=== PATIENT | male | born 1930 | race Caucasian/White ===

== ENCOUNTER 2016-04-10 16:11 | Emergency (ER) | payer MEDICARE, MEDICAID ==
[~2016-04-10] VITALS: Ht 190.5 cm; Wt 104.5 kg
[~2016-04-10 16:11] MED LIST: ASPI81TA3 PO; CALC-756 PO; CARB1TAB40 PO; CHOL200025 PO; DOCU-41 PO; FERR325T39 PO; FUR20 PO; KEP500TA PO; LAMO25TA2 PO; LISI-571 PO; LORA10CA PO; MAGN400T23 PO; METO25TA6 PO; MULT1CAP45 PO; PANT40TA2 PO; UBID100C PO; WHEA144P PO
[2016-04-10 16:19] VITALS: BP 140/55; PULSE 80; RESP 16; O2SAT 92
--- NOTE | 2016-04-10 17:09 | ED.REPORT ---
HPI-General Illness Date of Service Apr 10, 2016 ED Provider: Kvng Souza MD Pt is an 85 y/o male w/ a hx of frequent GLF's, Parkinson's disease, A-fib on ASA only, CAD, CHF, presenting to the ED via EMS due to ground level fall with minor head injury prior to arrival. He lives at a termite control service [facility] care facility and this caretakers have noticed that the pt has been mildly confused with a fever and cough and they were going to have him send urine out for analysis. He fell with a mild head injury on the way to give his urine. Caretakers wanted to help him stabilize himself on the way, but apparently he is quite stubborn and attempted to walk on his own. The head injury is a small laceration. He denies change in LOC, headache, nausea, vomiting, CP, SOB. His niece has not noticed that he has been confused. Nursing Notes Stated Complaint: GLF Chief Complaint: General Complaint Nursing Notes Reviewed: Yes Allergies: Coded Allergies: No Known Allergies (Verified Allergy, Unknown, 04/10/16) Scheduled Aspirin Chew (Aspirin Chew) 81 Mg Tab.chew 162 MG PO DAILY Calcium Carbonate/Vitamin D2 (Oyster Shell Calcium-Vit D Tab) 1 Each Tablet 1 EACH PO DAILY Carbidopa/Levodopa ODT 25-100 mg (Carbidopa/Levodopa ODT 25-100 mg) 1 Each Tab.rapdis 1 EACH PO TID Cholecalciferol (Vitamin D3) (Vitamin D3) 2,000 Unit Tablet 2,000 UNIT PO DAILY Clotrimazole 1% (Clotrimazole 1%) 30 Ml Solution 30 ML TOPICAL BID Docusate Sodium (Colace) 100 Mg Capsule 100 MG PO DAILY Ferrous Sulfate (Iron) 325 Mg Tablet 325 MG PO DAILY Furosemide (Furosemide) 20 Mg Tab 10 MG PO DAILY Lamotrigine (Lamictal) 25 Mg Tablet 25 MG PO DAILY Levetiracetam (Keppra) 500 Mg Tablet 500 MG PO BID Lisinopril (Lisinopril) 5 Mg Tablet 5 MG PO DAILY Loratadine (Claritin) 10 Mg Capsule 10 MG PO DAILY Magnesium Oxide (Mag-Oxide) 400 Mg Tablet 400 MG PO DAILY Metoprolol Tartrate (Metoprolol Tartrate) 25 Mg Tablet 12.5 MG PO BID Multivitamin with Minerals (Myvitalife) 1 Each Capsule 1 EACH PO DAILY Pantoprazole DR (Protonix) 40 Mg Tablet.dr 40 MG PO DAILY Ubidecarenone (Coenzyme Q10) 100 Mg Capsule 100 MG PO DAILY Wheat Dextrin (Benefiber) 144 Gm Powder 1 TBS PO DAILY in juice. General Time Seen by MD: 16:48 Chief Complaint Other (Minor head injury) Hx Obtained From: Patient, Other family..., EMS Arrived By: Ambulance Sudden in Onset?: Yes Onset Occurred: Just prior to arrival Symptom Duration: Since onset Caused by: Accidental, Fall on ground Severity: Current: No pain currently Severity: Maximum: No pain Past Medical History Past Medical History Notes: Neurologist Dr. ferguson ED visit 07/07/2015 for multiple ground-level falls Admit june 03 through 2015 for acute cholecystitis, new onset atrial fibrillation Has recently had Keppra DC, Vimpat increased/started for seizures Also, had amiodarone DC'd due to concern for oversedation contributing to falls in recent days Past Medical History Parkinson's disease S/P bioprosthetic AVR Atrial fibrillation (paroxysmal identified May 2015) - on ASA, not warfarin (multiple falls, high risk for warfarin) Chronic thrombocytopenia (~60-80) GERD sleep apnea BPH Coronary artery disease CHF Seizures Developmental delay Past Surgical History Aortic valve replacement: bioprosthetic cancer removal Cholecystectomy May 2015 Family History noncontributory Smoking History Current Every Day Smoker Social History Lives at [facility] Full code per [facility]ST from 07/09/15 Alcohol Use: Denies alcohol use Drug Use: Denies drug use Other Social History: Lives in correction Ambulatory Status Independent Review of Systems Full Review of Systems Constitutional: Reports: Fever, Weakness - generalized Respiratory: Reports: Non-productive cough, Denies: Shortness of breath Cardiovascular: Denies: Chest pain Neurologic: Reports: Confusion, Denies: Bladder dysfunction, Bowel dysfunction, Focal weakness, Headache, Numbness, Problem walking, Slurred speech, Spinning sensation, Syncope, Unable to speak, Vision change Complete sys rev & neg: except as marked. Physical Exam Vital Signs Vital Signs Date Time Temp Pulse Resp B/P Pulse Ox O2 Delivery O2 Flow Rate FiO2 04/10/16 19:12 80 20 157/68 95 Room Air 04/10/16 16:19 37.1 80 16 140/55 92 Room Air Initial VS: Reviewed, Vital signs abnormal ENT: Mucous membranes moist, Conjunctiva normal, No scleral icterus Neck: Supple, Non-tender, Full range of motion Abdomen / GI: Soft, Non-tender, No guarding, No rebound, No distention Psychiatric: Mood/affect normal, Behavior normal, Normal thought content General/Constitutional: Awake, Alert, No acute distress, Cooperative, Not toxic appearing Head / Eyes: Normocephalic, PERRL, No periorbital redness, No periorbital swelling 3 cm oblique laceration above the right eyelid Respiratory / Chest: Atraumatic, No respiratory distress, No retractions, No chest tenderness, No chest wall deformity Bibasilar crackles Cardiovascular: Heart rate NL, Regular rhythm, No gallop, No rubs, Cap refill not delayed, Peripheral circulation NL Heart Sounds / Murmur: Positive: Systolic murmur present.. (IV/, best heard right upper sternal border) Lower Extremity / Pelvis / MS: Full range of motion, No deformity, Neurologic intact, Vascular intact, Pelvis stable, Pelvis non-tender Minor abrasion over right patella Skin: Warm, Dry, Intact Color / Condition: Positive: Rash present Rash / Lesion Notes: Beefy erythematous fungal appearing rash about his right groin fold Neurologic: Oriented X3, Speech NL, No motor deficits, No sensory deficits, CN II - XII intact, Cerebellar NL, Memory NL Interpretation & Diagnostics Lab Results Interpretation Result Diagram: 04/10/16 1636 04/10/16 1636 Test 04/10/16 16:36 04/10/16 17:37 04/10/16 18:40 White Blood Count 5.0th/mm3 (3.8-10.1) Red Blood Count 4.36mil/mm3 (4.40-5.80) Hemoglobin 13.5g/dL (13.8-17.2) Hematocrit 39.5% (41.0-50.0) Mean Corpuscular Volume 90.6fL (81-100) Mean Corpuscular Hemoglobin 31.0pg (27.0-35.0) Mean Corpuscular Hemoglobin Concent 34.2% (32.0-37.0) Red Cell Distribution Width 12.8% (12.3-15.4) Platelet Count 69bil/L (150-400) Neutrophils (%) (Auto) 81.2% (40-74) Lymphocytes (%) (Auto) 9.8% (14-46) Monocytes (%) (Auto) 8.2% (4-12) Eosinophils (%) (Auto) 0.4% (0-5) Basophils (%) (Auto) 0.2% (0-3) Hold Purple Top Tube Received (Received) Hold Blue Top Tube Received (Received) Sodium Level 139mEq/L (134-144) Potassium Level 4.1mEq/L (3.5-5.2) Chloride Level 100mEq/L (97-108) Carbon Dioxide Level 26mmol/L (18-29) Blood Urea Nitrogen 26mg/dL (8-27) Creatinine 1.16mg/dL (0.76-1.27) Estimat Glomerular Filtration Rate 64mL/min (>59) Glucose Level 136mg/dL (60-99) Calcium Level 9.6mg/dL (8.5-10.1) Total Bilirubin 0.6mg/dL (0.0-1.2) Aspartate Amino Transf (AST/SGOT) 30U/L (0-50) Alanine Aminotransferase (ALT/SGPT) 5U/L (0-44) Alkaline Phosphatase 109U/L (25-160) Total Protein 7.7g/dL (6.4-8.4) Albumin 4.3g/dL (3.4-5.0) Hold Red Top Tube Received (Received) Hold [place] Top Tube Received (Received) Hold [place] Top Tube Received (Received) Urine Color Yellow (YELLOW) Urine Appearance Hazy (CLEAR,HAZY) Urine pH 6.0 (5.0-8.0) Urine Specific [place] 1.025 (1.003-1.035) Urine Protein Negativemg/dL (NEG,TRACE) Urine Glucose (UA) Negativemg/dL (NEGATIVE) Urine Ketones Negativemg/dL (NEGATIVE) Urine Occult Blood Large (NEGATIVE) Urine Nitrite Negative (NEGATIVE) Urine Bilirubin Negative (NEGATIVE) Urine Urobilinogen Normalmg/dL (NORMAL) Urine Leukocyte Esterase Negative (NEGATIVE) Urine RBC >50/hpf (0-2) Urine WBC 0-5/hpf (0-5) Urine Epithelial Cells Moderate/hpf (NONE-MOD) Urine Crystals None seen (NONE SEEN) Urine Bacteria None/hpf (NONE-FEW) Urine Hyaline Casts None/lpf (NONE) Urine Granular Casts None seen (NONE SEEN) Urine Waxy Casts None seen (NONE SEEN) Urine Red Blood Cell Casts None seen (NONE SEEN) Urine White Blood Cell Casts None seen (NONE SEEN) Urine Mucus Present (None Seen) Urine Trichomonas None seen (NONE SEEN) Urine Yeast None (NONE SEEN) Urinalysis Comment None Urine Culture Reflexed Not indicated Hold Urine Received (Received) ECG Interpretation ECG Interpretation: Sinus rhythm rate [address] depression leads V4, V5 Compared to prior date 07/09/15 the patient is no longer bradycardic Time: 17:45 Interpreted by: ED physician Normal ECG Interpretation: No acute ischemic changes X-Ray Chest Interpretation Chest Xray Interpretation: IMPRESSION: No acute process. Hiatal hernia. Dictated by: Nguyen Esteban M.D. on 04/10/2016 at 18:11 Approved by: Nguyen Esteban M.D. on 04/10/2016 at 18:12 View: Portable, 1 view Interpretation / Wet Read by: Interpret - Radiologist CT Head Interpretation IMPRESSION: No acute intracranial abnormality. Dictated by: Nguyen Esteban M.D. on 04/10/2016 at 17:35 Approved by: Nguyen Esteban M.D. on 04/10/2016 at 17:36 Study: Head CT no contrast Interpretation / Wet Read by: Interpret - Radiologist Procedures Laceration Management Time: 17:50 Procedure Performed by: ED physician Consent / Setup / Site Prep: Consent from patient, Time-out performed, Hand hygiene observed, Stand sterile technique Location of Wound: See physical exam Wound Length: 4 cm Local Anesthesia: Lidocaine w epi 1% Wound Preparation: Betadine Debridement: None Irrigation: Copious Undermining / Margins: Flaps aligned Repair Skin: ___ O (4), Nylon # Sutures - Skin: 5 Suture Technique: Simple Post-Procedure / Complications: Antibiotic oint applied, Dressing applied, No complications, Condition improved, Tolerated procedure well, Patient stable Re-Eval/Medical Decision Med Decision/Clinical Course Pt is an 85 y/o male w/ a hx of frequent GLF's, Parkinson's disease, A-fib on ASA only, CAD, CHF, presenting to the ED via EMS due to ground level fall with minor head injury prior to arrival. Per report the patient had been behaving somewhat abnormally at his care facility and was being taken to give a urine sample when he fell. Of note, however, he is accompanied by his daughter who states that he is at his normal cognitive baseline and is behaving completely normally. Labs notable as below: CBC: no leukocytosis, HCT of 39.5, Thrombocytopenia of 69 which is baseline for him CMP: Unremarkable UA: Unremarkable CT scan of the patient's head demonstrated no acute intracranial process. Chest x-ray and was treated no acute focal consolidation. The patient's tetanus status was updated and his laceration was repaired as above. The patient remained at his cognitive baseline without any fevers, leukocytosis or evidence of an acute infectious process. I considered multiple causes of the patient's possible altered mental status however this time there are no findings of electrolyte abnormality, intracranial hemorrhage or acute infectious process and her family he is at his cognitive baseline. At this time we feel that he is appropriate for discharge home. Follow-up and return precautions were reviewed in detail and he was discharged in stable condition. Sutures will be removed in 7 days. Incidentally the patient was found to have significant tinea cruris and we applied clotrimazole cream here in the emergency department and he is prescribed a course of clotrimazole cream to apply twice daily until his rash resolves. Time of Eval: 18:17 Re-Evaluation/Progress Note: Pt rechecked. Informed pt of plan for treatment. Pt understands and agrees with plan for treatment. F/U instructions and RTER warnings given. All questions addressed. Counseled Regarding: Diagnosis, Lab results, Need for follow-up, When/why to return to ED Discharge & Departure Primary Impression: Fall from ground level Additional Impressions: Scalp laceration Encounter type: initial encounter Qualified Code: S01.01XA - Laceration without foreign body of scalp, initial encounter Tinea cruris Altered mental status Altered mental status type: unspecified Qualified Code: R41.82 - Altered mental status, unspecified Disposition: Home Discharge Condition All VS Reviewed: Yes Condition: Stable Patient Instructions: Laceration (ED), Minor Head Injury (ED) Additional Instructions: Thank you for seeking care at emergency room. There was no sign of pneumonia on the chest x-ray. Your labs were normal. I believe that you are appropriate for discharge at this time. Our primary goal today in the ED was to evaluate you for any life-threatening conditions. Your evaluation was reassuring. You will be discharged with a prescription for Clotrimazole cream. Apply this generously over the fungal rash. You should follow-up with your primary doctor in the next week. You should return to the ED immediately if you develop fevers, vomiting, productive cough, shortness of breath, chest pain, lightheadedness, weakness or any other concerning signs or symptoms. Thank you for letting us partake in your care today. Referrals: Chaz Rice MD (PCP) [place] Attestation Portions of this note were transcribed by Tony Uribe. I, Dr. Souza personally performed the history, physical exam and medical decision-making; I reviewed and confirmed the accuracy of the information in the transcribed note. Signed by Eliana Russ, 04/10/16 - [id number] copies to: Chaz Rice MD, Beck O MD Apr 10, 2016 17:09 TONY URIBE Apr 10, 2016 17:17
[2016-04-10] MEDS ORDERED: Lidocaine 1% 50 mL Inj NERVEBLOCK ONE (17:15)
[2016-04-10] MEDS ORDERED: TdaP Vaccine 0.5 mL Inj IM ONE (17:15)
[2016-04-10 17:24] LABS: BASOPHILS % (AUTO) 0.2 % (0-3); EOSINOPHILS % (AUTO) 0.4 % (0-5)
[2016-04-10 17:26] LABS: MONOCYTES % (AUTO) 8.2 % (4-12); Mean Corpuscular Volume 90.6 fL (81-100); NEUTROPHILS % (AUTO) 81.2 % (40-74); Platelet Count 69 bil/L (150-400)
--- NOTE | 2016-04-10 17:37 | DRSVH ---
PROCEDURE: CT BRAIN WITHOUT CONTRAST ([id number]) INDICATIONS: trauma TECHNIQUE: Noncontrast 4.5 mm thick angled axial sections acquired from the foramen magnum to the vertex, with c oronal reformats. COMPARISON: [facility], CT, BRAIN (TPA), 07/09/2015, 11:52. [facility], CT, CT BRAIN WO CON, 07/07/2015, 10:16. [facility], CT, CT BRAIN WO CON, 06/04/2015, 17:03. [facility], CT, CT BRAIN WO CON, 03/14/2015, 10:07. FINDINGS: Image quality: Excellent. CSF spaces: Basal cisterns are patent. No extra-axial fluid collections. The ventricles are symmet gertrude in size and shape. Brain: No intracranial bleeds or masses. There is cerebral volume loss for age, with resultant vent ricular and sulcal prominence. There are periventricular and deep white matter chronic small vessel ischemic changes. There is intracranial internal carotid artery atherosclerosis. Skull and face: Calvarium and visualized facial bones appear intact, without suspicious lesions. Ri ght frontal scalp hematoma is present. No evidence of underlying calvarial nor intracranial pathology . Sinuses: Left maxillary sinus retention cysts are present. Visualized sinuses and mastoids are otherw ise clear. IMPRESSION: No acute intracranial abnormality. Dictated by: Nguyen Esteban M.D. on 04/10/2016 at 17:35 Approved by: Nguyen Esteban M.D. on 04/10/2016 at 17:36
[2016-04-10 18:08] LABS: APPEARANCE,URINE HAZY (CLEAR,HAZY); COLOR,URINE YELLOW (YELLOW); OCCULT BLOOD,URINE LARGE (NEGATIVE); UROBILINOGEN,URINE NORMAL (NORMAL)
--- NOTE | 2016-04-10 18:14 | DRSVH ---
PROCEDURE: X-RAY CHEST ONE VIEW, PORTABLE ([id number]) INDICATIONS: cough TECHNIQUE: One view of the chest was acquired. COMPARISON: [facility], CR, XR CHEST 1VW (PORTABLE), 07/07/2015, 8:46. FINDINGS: Surgical changes and devices: Median sternotomy. Lungs and pleura: No pleural effusions or pneumothorax. Lungs are clear. Mediastinum: Large hiatal hernia. Mediastinal contours otherwise appear normal. Heart size is enlar ged. Bones and chest wall: No suspicious bony lesions. Overlying soft tissues appear unremarkable. IMPRESSION: No acute process. Hiatal hernia. Dictated by: Nguyen Esteban M.D. on 04/10/2016 at 18:11 Approved by: Nguyen Esteban M.D. on 04/10/2016 at 18:12
[2016-04-10] MEDS ORDERED: CLOT30SO TOPICAL (18:16)
[2016-04-10 19:12] VITALS: BP 157/68; PULSE 80; RESP 20; O2SAT 95
[2016-04-10 19:15] VITALS: BP 157/68; PULSE 80; RESP 20; O2SAT 95
== END 2016-04-10 19:08 ==
LOC: EDBD 16:11 → SED 16:11 → EDUNIT# 16:11 → SED 19:08
DX: S01.01XA Laceration without foreign body of scalp, initial encounter (principal); R41.82 Altered mental status, unspecified; B35.6 Tinea cruris; W19.XXXA Unspecified fall, initial encounter; Y93.89 Activity, other specified; Y92.129 Unspecified place in nursing home as the place of occurrence of the external cause; Y99.8 Other external cause status; F17.200 Nicotine dependence, unspecified, uncomplicated; K21.9 Gastro-esophageal reflux disease without esophagitis; I50.9 Heart failure, unspecified; I25.10 Atherosclerotic heart disease of native coronary artery without angina pectoris; Z90.49 Acquired absence of other specified parts of digestive tract; Z79.82 Long term (current) use of aspirin; Z23 Encounter for immunization

== ENCOUNTER 2016-04-12 11:47 | Inpatient (IN) | payer MEDICARE, MEDICAID ==
[~2016-04-12] VITALS: Ht 190.5 cm; Wt 94.5 kg
[~2016-04-12 11:47] MED LIST changes: +CLOT30SO TOPICAL
--- NOTE | 2016-04-12 12:07 | ED.REPORT ---
HPI-General Illness Date of Service Apr 12, 2016 ED Provider: Kvng Souza MD Pt is an 85 y/o male w/ a hx of frequent GLF's, Parkinson's disease, A-fib on ASA only, CAD, CHF, presenting to the ED via EMS after he had a ground level fall prior to arrival. His niece states he is much worse today. His shaking is worse and he is not recognizing his family members. The patient was seen in the emergency department 2 days ago after he had a ground level fall. He had a normal head CT and chest x-ray. He was discharged home after the workup. Nursing Notes Stated Complaint: GROUND LEVEL FALL Chief Complaint: General Complaint Nursing Notes Reviewed: Yes Allergies: Coded Allergies: No Known Allergies (Verified Allergy, Unknown, 04/10/16) Scheduled Aspirin Chew (Aspirin Chew) 81 Mg Tab.chew 162 MG PO DAILY Calcium Carbonate/Vitamin D2 (Oyster Shell Calcium-Vit D Tab) 1 Each Tablet 1 EACH PO DAILY Carbidopa/Levodopa ODT 25-100 mg (Carbidopa/Levodopa ODT 25-100 mg) 1 Each Tab.rapdis 1 EACH PO TID Cholecalciferol (Vitamin D3) (Vitamin D3) 2,000 Unit Tablet 2,000 UNIT PO DAILY Clotrimazole 1% (Clotrimazole 1%) 30 Ml Solution 30 ML TOPICAL BID Docusate Sodium (Colace) 100 Mg Capsule 100 MG PO DAILY Ferrous Sulfate (Iron) 325 Mg Tablet 325 MG PO DAILY Furosemide (Furosemide) 20 Mg Tab 10 MG PO DAILY Lamotrigine (Lamictal) 25 Mg Tablet 25 MG PO DAILY Levetiracetam (Keppra) 500 Mg Tablet 500 MG PO BID Lisinopril (Lisinopril) 5 Mg Tablet 5 MG PO DAILY Loratadine (Claritin) 10 Mg Capsule 10 MG PO DAILY Magnesium Oxide (Mag-Oxide) 400 Mg Tablet 400 MG PO DAILY Metoprolol Tartrate (Metoprolol Tartrate) 25 Mg Tablet 12.5 MG PO BID Multivitamin with Minerals (Myvitalife) 1 Each Capsule 1 EACH PO DAILY Pantoprazole DR (Protonix) 40 Mg Tablet.dr 40 MG PO DAILY Ubidecarenone (Coenzyme Q10) 100 Mg Capsule 100 MG PO DAILY Wheat Dextrin (Benefiber) 144 Gm Powder 1 TBS PO DAILY in juice. General Time Seen by MD: 11:48 Chief Complaint Altered mental status, Other (fall) Hx Obtained From: Patient, Other family..., EMS Arrived By: Ambulance Sudden in Onset?: No Onset Occurred: 5 - 8 hours ago Symptom Duration: Since onset Caused by: Fall on ground Recent Healthcare: Recent doctor visit Similar Sx Previous: Yes Past Medical History Past Medical History Parkinson's disease S/P bioprosthetic AVR Atrial fibrillation (paroxysmal identified May 2015) - on ASA, not warfarin (multiple falls, high risk for warfarin) Chronic thrombocytopenia (~60-80) GERD sleep apnea BPH Coronary artery disease CHF Seizures Developmental delay Past Surgical History Aortic valve replacement: bioprosthetic cancer removal Cholecystectomy May 2015 Family History noncontributory Smoking History Current Every Day Smoker Social History Lives at [facility] Full code per [facility] from 07/09/15 Alcohol Use: Denies alcohol use Drug Use: Denies drug use Other Social History: Good social support, Lives in halfway, Local resident Ambulatory Status Independent Review of Systems Unable to Obtain ROS Patient condition, Mental status Full Review of Systems Neurologic: Reports: Confusion, Shaking Physical Exam Vital Signs Vital Signs Date Time Temp Pulse Resp B/P Pulse Ox O2 Delivery O2 Flow Rate FiO2 04/12/16 13:56 37.3 72 19 114/65 94 Nasal Cannula 2 04/12/16 12:12 37.9 76 23 124/79 92 Nasal Cannula 2 Initial VS: Reviewed, Vital signs abnormal Neck: Supple, Non-tender, Full range of motion Skin: Warm, Dry, No cyanosis General/Constitutional: Awake Head / Eyes: Normocephalic, PERRL, EOMI Well healing laceration with sutures present about the right brow. No acute trauma to scalp or face. ENT: Airway patent Mouth: Positive: Mucous membranes dry Respiratory / Chest: Breath sounds = bilat, No respiratory distress, No rales, No rhonchi, No wheezing Diminished Breath Sounds: Positive: Decreased bilateral Cardiovascular: Heart rate NL, Regular rhythm, No rubs, Cap refill not delayed , Peripheral circulation NL Heart Sounds / Murmur: Positive: Systolic murmur present.. (grade II, heard best at the left sternal border) Abdomen: Soft, Non-tender, No guarding, No rebound, BS normoactive, No distention Soft and nontender in all 4 quadrants Male Genitourinary: Atraumatic Improving fungal infection about groin folds. NEURO: Intermittently opens eyes to verbal commands but not consistently. Speech is not fluent. Ground Water [employer]ician strength 5/5 bilaterally. Sensation intact to bilateral upper extremities. Exam is limited to lower extremities but he appears to have equal strength. No facial droop. Nonfocal neurologic exam. Interpretation & Diagnostics Lab Results Interpretation Result Diagram: 04/12/16 1245 04/12/16 1245 Test 04/12/16 12:00 04/12/16 12:45 Urine Color Yellow (YELLOW) Urine Appearance Clear (CLEAR,HAZY) Urine pH 5.0 (5.0-8.0) Urine Specific [place] 1.025 (1.003-1.035) Urine Protein Tracemg/dL (NEG,TRACE) Urine Glucose (UA) Negativemg/dL (NEGATIVE) Urine Ketones Negativemg/dL (NEGATIVE) Urine Occult Blood Negative (NEGATIVE) Urine Nitrite Negative (NEGATIVE) Urine Bilirubin Negative (NEGATIVE) Urine Urobilinogen Normalmg/dL (NORMAL) Urine Leukocyte Esterase Negative (NEGATIVE) Urine RBC 0-2/hpf (0-2) Urine WBC 0-5/hpf (0-5) Urine Epithelial Cells Few/hpf (NONE-MOD) Urine Crystals None seen (NONE SEEN) Urine Bacteria Few/hpf (NONE-FEW) Urine Hyaline Casts None/lpf (NONE) Urine Granular Casts Occasional (NONE SEEN) Urine Waxy Casts None seen (NONE SEEN) Urine Red Blood Cell Casts None seen (NONE SEEN) Urine White Blood Cell Casts None seen (NONE SEEN) Urine Mucus None seen (None Seen) Urine Trichomonas None seen (NONE SEEN) Urine Yeast None (NONE SEEN) Urinalysis Comment None Urine Culture Reflexed Not indicated Hold Urine Received (Received) White Blood Count 5.6th/mm3 (3.8-10.1) Red Blood Count 4.54mil/mm3 (4.40-5.80) Hemoglobin 14.0g/dL (13.8-17.2) Hematocrit 42.0% (41.0-50.0) Mean Corpuscular Volume 92.5fL (81-100) Mean Corpuscular Hemoglobin 30.8pg (27.0-35.0) Mean Corpuscular Hemoglobin Concent 33.3% (32.0-37.0) Red Cell Distribution Width 13.0% (12.3-15.4) Platelet Count 69bil/L (150-400) Neutrophils (%) (Auto) 76.9% (40-74) Lymphocytes (%) (Auto) 10.3% (14-46) Monocytes (%) (Auto) 12.8% (4-12) Eosinophils (%) (Auto) 0% (0-5) Basophils (%) (Auto) 0% (0-3) Sodium Level 140mEq/L (134-144) Potassium Level 4.4mEq/L (3.5-5.2) Chloride Level 99mEq/L (97-108) Carbon Dioxide Level 27mmol/L (18-29) Blood Urea Nitrogen 31mg/dL (8-27) Creatinine 1.57mg/dL (0.76-1.27) Estimat Glomerular Filtration Rate 45mL/min (>59) Glucose Level 149mg/dL (60-99) Lactic Acid Level 1.6mmol/L (0.4-2.0) Calcium Level 9.0mg/dL (8.5-10.1) Magnesium Level 2.1mg/dL (1.6-2.6) Total Bilirubin 0.6mg/dL (0.0-1.2) Aspartate Amino Transf (AST/SGOT) 77U/L (0-50) Alanine Aminotransferase (ALT/SGPT) 30U/L (0-44) Alkaline Phosphatase 102U/L (25-160) Ammonia 38ug/dL (18-53) Troponin T < 0.010ug/L (0.0-0.011) Pro-B-Type Natriuretic Peptide 695.8pg/mL (0-486) Total Protein 7.5g/dL (6.4-8.4) Albumin 4.0g/dL (3.4-5.0) Salicylates Level < 3.0ug/mL (30-250) Alcohol, Quantitative < 10mg/dL (0-10) ECG Interpretation ECG Interpretation: Sinus rhythm with a rate of [address] segment elevation No T wave abnormalities No prior available for comparison at this time. Time: 12:45 Interpreted by: ED physician X-Ray Chest Interpretation Chest Xray Interpretation: IMPRESSION: 1. No acute process. 2. Hiatal hernia. Dictated by: Nguyen Esteban M.D. on 04/12/2016 at 13:28 Interpretation / Wet Read by: Interpret - Radiologist CT Head Interpretation IMPRESSION: 1. No acute process. 2. Volume loss and small vessel ischemic disease. 3. No change in hypodensity within the left marii, consistent with chronic infarct. Dictated by: Nguyen Esteban M.D. on 04/12/2016 at 13:14 Study: Head CT no contrast Interpretation / Wet Read by: Interpret - Radiologist Re-Eval/Medical Decision Med Decision/Clinical Course Pt is an 85 y/o male w/ a hx of frequent GLF's, Parkinson's disease, A-fib on ASA only, CAD, CHF, presenting to the ED via EMS after he had a ground level fall prior to arrival. He was seen and evaluated this emergency department 2 days ago after a ground-level fall and had extensive workup at that time including head CT, urinalysis, chest x-ray and laboratory studies which were reassuring. He is not to be at his regular baseline per family member and was speaking normally and making jokes at time of discharge. Upon arrival in the emergency room today the patient is hypoxic in the high 80s on room air, improving to the 90s on 2 L by nasal canula. He is confused, unable to provide any history and significantly altered from his previous baseline. He appeared significantly dehydrated. IV access was obtained and I administered IV fluids. Workup was obtained as below: CBC unremarkable except for thrombocytopenia with a platelet count of 69 which is his baseline. BUN 31 and creatinine 1.57 which is elevated from baseline, otherwise the CMP is unremarkable. Troponin is negative. BNP is mildly elevated at 695. Aspirin and salicylates are negative. UA unconvincing of UTI. CT head negative Chest x-ray negative for acute infiltrate Because of the patient's profound alteration of mental status remains unclear. At this time there is no lateralizing neurologic deficit suggestive of acute ischemic stroke and head CT is negative for intracranial hemorrhage or mass lesion. Again, there is no evidence of acute infectious process such as pneumonia or UTI. The patient has no meningismus, no fever and no leukocytosis and at this time my suspicion for meningitis is relatively low. We have opted to defer LP for the moment. The patient is on multiple medications including multiple antiepileptic drugs and I wonder if polypharmacy may be a contributing factor in his presentation today. In addition, his underlying neurologic disease may be contributing to his presentation as well. Regardless, the patient has significantly deteriorating mental status and requires admission for further workup and monitoring. The patient was discussed with the admitting hospitalist accepted for further management. Source of Hx: Old records, EMS, Family Time of Eval: 13:00 Re-Evaluation/Progress Note: Discussed plan for admission with the patient and family. All questions were addressed. Consultation : Referral / Consult Name: Adryan Mckenna MD Consulted With: Hospitalist Requested Call at: 13:35 Call Returned at: 14:35 Ship'S Captain: Will see patient, Agrees with eval, Agrees with plan, Accepts admit Counseled Regarding: Diagnosis, Lab results, Need for admission Discharge & Departure Primary Impression: Altered mental status Altered mental status type: unspecified Qualified Code: R41.82 - Altered mental status, unspecified Additional Impressions: Hypoxia Fall from ground level Parkinsons disease Generalized weakness Polypharmacy History of seizure disorder Disposition: ADMITTED TO HOSPITAL Discharge Condition All VS Reviewed: Yes Condition: Stable Referrals: Alexandre Lees DO (PCP) Crit Care Except Billable Proc Time Spent: 75-104 minutes Services Performed: Patient management by me, Time spent at bedside, Reviewing test results, Reviewing imaging, Discussing patient care, Documentation in record, Time with fam/surrogate Scribe Attestation Portions of this note were transcribed by Neeru Taveras. I, Dr. Souza personally performed the history, physical exam and medical decision-making; I reviewed and confirmed the accuracy of the information in the transcribed note. Signed by: Eliana Nielsen, 04/12/2016 and 1440. copies to: Alexandre Lees Beck O MD Apr 12, 2016 12:07 Neeru Taveras Apr 12, 2016 12:19
[2016-04-12 12:12] VITALS: BP 124/79; PULSE 76; RESP 23; O2SAT 92
[2016-04-12] MEDS ORDERED: 0.9% Sodium Chloride 1,000 ML IV ONE (12:20)
[2016-04-12] MEDS ORDERED: Alum-Mag Hydrox-Simeth 30 mL Suspension PO PRN ×2 (12:30→15:45)
[2016-04-12] MEDS ORDERED: Ondansetron 2 mg/mL 2 mL Inj IVPUSH PRN ×2 (12:30→15:45)
[2016-04-12 12:37] LABS: APPEARANCE,URINE CLEAR (CLEAR,HAZY); COLOR,URINE YELLOW (YELLOW); OCCULT BLOOD,URINE NEGATIVE (NEGATIVE); UROBILINOGEN,URINE NORMAL (NORMAL)
[2016-04-12 12:55] LABS: BASOPHILS % (AUTO) 0 % (0-3); EOSINOPHILS % (AUTO) 0 % (0-5); MONOCYTES % (AUTO) 12.8 % (4-12); Mean Corpuscular Hemoglobin 30.8 pg (27.0-35.0); Mean Corpuscular Volume 92.5 fL (81-100); NEUTROPHILS % (AUTO) 76.9 % (40-74); Platelet Count 69 bil/L (150-400)
--- NOTE | 2016-04-12 13:18 | DRSVH ---
PROCEDURE: CT BRAIN WITHOUT CONTRAST ([id number]) INDICATIONS: ams TECHNIQUE: Noncontrast 4.5 mm thick angled axial sections acquired from the foramen magnum to the vertex, with c oronal reformats. COMPARISON: [facility], CT, CT BRAIN WO CON, 04/10/2016, 17:28. FINDINGS: Image quality: Excellent. CSF spaces: Basal cisterns are patent. No extra-axial fluid collections. The ventricles are symmet gertrude in size and shape. Brain: No intracranial bleeds or masses. No change in low-density within the left marii, consistent with chronic infarction. There is cerebral volume loss for age, with resultant ventricular and sulcal prominence. There are periventricular and deep white matter chronic small vessel ischemic changes. There is intracranial internal carotid artery atherosclerosis. Skull and face: Calvarium and visualized facial bones appear intact, without suspicious lesions. Sinuses: Mild left maxillary sinus mucosal thickening. Left maxillary sinus retention cyst. Mild bila teral ethmoid air cell mucosal thickening. Visualized sinuses and mastoids are otherwise clear. IMPRESSION: 1. No acute process. 2. Volume loss and small vessel ischemic disease. 3. No change in hypodensity within the left marii, consistent with chronic infarct. Dictated by: Nguyen Esteban M.D. on 04/12/2016 at 13:14 Approved by: Nguyen Esteban M.D. on 04/12/2016 at 13:16
[2016-04-12 13:29] LABS: TROPONIN T < 0.010 ug/L (0.0-0.011)
--- NOTE | 2016-04-12 13:30 | DRSVH ---
PROCEDURE: X-RAY CHEST ONE VIEW, PORTABLE ([id number]) INDICATIONS: ams, hypoxia TECHNIQUE: One view of the chest was acquired. COMPARISON: [facility], CR, XR CHEST 1VW (PORTABLE), 04/10/2016, 17:27. FINDINGS: Surgical changes and devices: Median sternotomy. Lungs and pleura: No pleural effusions or pneumothorax. Lungs are clear. Mediastinum: Moderate hiatal hernia. Mediastinal contours otherwise appear normal. Heart size is nor mal. Bones and chest wall: No suspicious bony lesions. Overlying soft tissues appear unremarkable. IMPRESSION: 1. No acute process. 2. Hiatal hernia. Dictated by: Nguyen Esteban M.D. on 04/12/2016 at 13:28 Approved by: Nguyen Esteban M.D. on 04/12/2016 at 13:28
[2016-04-12 13:37] LABS: Magnesium 2.1 mg/dL (1.6-2.6)
[2016-04-12 13:39] LABS: Ammonia 38 ug/dL (18-53)
[2016-04-12 13:56] VITALS: BP 114/65; PULSE 72; RESP 19; O2SAT 94
[2016-04-12] MEDS ORDERED: Polyethylene Glycol (PEG) 17 Gm Powder PO PRN (15:45)
[2016-04-12 16:16] VITALS: BP 107/50; PULSE 73; RESP 18; O2SAT 95
[2016-04-12] MEDS ORDERED: CA C1TAB92 PO (16:38)
[2016-04-12] MEDS ORDERED: UBID30CA8 PO (16:38)
[2016-04-12] MEDS ORDERED: LORA5SOL82 PO (16:38)
[2016-04-12] MEDS ORDERED: ACET325T51 PO (16:38)
[2016-04-12] MEDS ORDERED: PSYL660P17 PO (16:38)
[2016-04-12] MEDS: 0.9% Sodium Chloride 1,000 ML IV SCH (16:40)
[2016-04-12 16:46] VITALS: BP 132/74; PULSE 74; RESP 18; O2SAT 92
[2016-04-12] MEDS ORDERED: cefTRIAXone Inj 2,000 MG, Lidocaine PF 1% Inj 2.1 ML in Syringe 0 EACH IM ONE (17:50)
--- NOTE | 2016-04-12 19:10 | PCM.HPMED ---
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 This resulted in him having an aortic valve replacement 3 years ago. Patient did well after the surgery and returned to the [facility]. The patient did well at the [facility] until June 2015 when he developed TIA-like symptoms. Patient was found to have cholecystitis and had a cholecystectomy and when ready to be discharged the [facility] refused to take him back to [facility] medical problems. Patient was then discharged to the [facility] [place]. Patient did well at [facility] until he fell and hit his head on 04/10/2015. Patient reportedly had a fever of 101. Patient was evaluated in the emergency room at [facility] and the had no significant findings on CAT scan and had no significant findings on chest x-ray and was discharged home. The patient did well for a little while since Wednesday and then started developing features of disorientation again. This morning he was found slumped over in his wheelchair and had altered mental status he did not recognize people he that he normally recognizes and was not his normal mental self. Therefore patient was brought to [facility] emergency room for further evaluation and treatment. Patient was evaluated in the emergency room Kvng Aguero M.D. who felt the patient needed admission. Patient was admitted to the hospital service for further evaluation and treatment. Review of Systems: Patient is unable to give a review of systems due to altered mental status. Allergies Coded Allergies: No Known Allergies (Verified Allergy, Unknown, 04/10/16) Home Medications Scheduled Aspirin Chew (Aspirin Chew) 81 Mg Tab.chew 162 MG PO DAILY Calcium Carbonate/Vitamin D2 (Oyster Shell Calcium-Vit D Tab) 1 Each Tablet 1 EACH PO DAILY Carbidopa/Levodopa ODT 25-100 mg (Carbidopa/Levodopa ODT 25-100 mg) 1 Each Tab.rapdis 1 EACH PO TID Cholecalciferol (Vitamin D3) (Vitamin D3) 2,000 Unit Tablet 2,000 UNIT PO DAILY Clotrimazole 1% (Clotrimazole 1%) 30 Ml Solution 30 ML TOPICAL BID Docusate Sodium (Colace) 100 Mg Capsule 100 MG PO DAILY Ferrous Sulfate (Iron) 325 Mg Tablet 325 MG PO DAILY Furosemide (Furosemide) 20 Mg Tab 10 MG PO DAILY Lamotrigine (Lamictal) 25 Mg Tablet 25 MG PO DAILY Levetiracetam (Keppra) 500 Mg Tablet 500 MG PO BID Lisinopril (Lisinopril) 5 Mg Tablet 5 MG PO DAILY Loratadine (Claritin) 10 Mg Capsule 10 MG PO DAILY Magnesium Oxide (Mag-Oxide) 400 Mg Tablet 400 MG PO DAILY Metoprolol Tartrate (Metoprolol Tartrate) 25 Mg Tablet 12.5 MG PO BID Multivitamin with Minerals (Myvitalife) 1 Each Capsule 1 EACH PO DAILY Pantoprazole DR (Protonix) 40 Mg Tablet.dr 40 MG PO DAILY Ubidecarenone (Coenzyme Q10) 100 Mg Capsule 100 MG PO DAILY Wheat Dextrin (Benefiber) 144 Gm Powder 1 TBS PO DAILY in juice. PMH Parkinson's disease History of Rheumatic fever with Rheumatic heart disease S/P bioprosthetic AVR [address] 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 for rheumatic heart disease Cholecystectomy in June 2015 Colonoscopy in the recent past with one polyp removed Family History His father of a cerebrovascular accident Patient mother of congestive heart flair Patient's brother had aortic valve replacement and then of an aortic aneurysm Patient is a sister who is 87 years old and lives independently Social History Occupation: retired [employer] Hx Alcohol Use: Yes ("occasional" patient like to drink beer and occasionally whiskey if someone would offer these to him. He never had an alcohol problem.) Hx Substance Use: No Hx Tobacco Use: Yes (patient would have 1-4 cigars a day) Smoking Status: Current Every Day Smoker (patient would have 1-4 cigars a day) Living Arrangement: [facility] Additional Information Patient was born in [place] as a "blue baby" he subsequently was found to be developmentally delayed. He suffered severe rheumatic fever as a child and had rheumatic heart disease. He went to school through the eighth grade and then spent the next 4 years in elementary school as well. Patient is unable to read or write. However he is able to sign his name. 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 After admission to [facility] in June 2015 he had to move to the [facility] in [place]. Where he is resided ever since. Patient apparently has never been sexually active, has no children and has never been . Patient does enjoy drinking beer if he is offered beer. He would also go to a neighbors house by the name of Valdemar and drank whiskey and occasion. Patient would only drink if it was offered to him and did not have a drinking problem. He used to smoke from 1 to 4 cigarellos a day. He no longer smokes or drinks at [facility]. He has quite a sense of humor and does tell jokes. His 3 nieces Aguilar Adamson and Renetta all share power of commercial litigation attorney. Exam Vital Signs Vital Sign - Last Date Time Temp Pulse Resp B/P Pulse Ox O2 Delivery O2 Flow Rate FiO2 04/12/16 16:46 37.7 74 18 132/74 92 Nasal Cannula 2.00 Exam General: Patient is quite somnolent but would occasionally awaken and that one episode set up and declared "they changed my room around ". HEENT: Head shows approximately an inch long laceration which has recently been stitched up the right side of his forehead. This laceration is unremarkable and shows no evidence of drainage, redness or infection. Eyes: Pupils are equally round and reactive to light and accommodation. Extraocular muscles are intact. Sclera are white anicteric. Subconjunctival mucosa is pink. Ears and nose are unremarkable. Oropharynx: There is no mucosal lesions, there is no thrush, there is no pharyngitis. Mucosa is dry however Neck: Is supple, there are no nodes or masses or tenderness. Chest: Is clear to auscultation and percussion. There are no rales, rhonchi, wheezes or rubs. Heart: Rate, rhythm is regular. There is no murmur, rub or gallop. Abdomen: Good bowel sounds are present. Abdomen is soft, nontender, no organomegaly or masses were appreciated. Extremities: Are symmetrical and well perfused. There is no edema, there is no cellulitis, no rash. Neurologic: There are no focal neurological deficits. Cranial nerves II through XII are intact. There are no sensory or motor deficits. Psychiatric: Patients mood is calm and shows no sign of agitation. Genital: Deferred Rectal: Deferred Lab and Diagnostics Result Diagram: 04/12/16 1245 04/12/16 1245 Microbiology 2 sets of blood cultures are pending from the emergency room department X-Rays, CTs and MRIs PROCEDURE: CT BRAIN WITHOUT CONTRAST ([id number]) INDICATIONS: ams TECHNIQUE: Noncontrast 4.5 mm thick angled axial sections acquired from the foramen magnum to the vertex, with coronal reformats. COMPARISON: [facility], CT, CT BRAIN WO CON, 04/10/2016, 17:28. FINDINGS: Image quality: Excellent. CSF spaces: Basal cisterns are patent. No extra-axial fluid collections. The ventricles are symmetric in size and shape. Brain: No intracranial bleeds or masses. No change in low-density within the left marii, consistent with chronic infarction. There is cerebral volume loss for age, with resultant ventricular and sulcal prominence. There are periventricular and deep white matter chronic small vessel ischemic changes. There is intracranial internal carotid artery atherosclerosis. Skull and face: Calvarium and visualized facial bones appear intact, without suspicious lesions. Sinuses: Mild left maxillary sinus mucosal thickening. Left maxillary sinus retention cyst. Mild bilateral ethmoid air cell mucosal thickening. Visualized sinuses and mastoids are otherwise clear. IMPRESSION: 1. No acute process. 2. Volume loss and small vessel ischemic disease. 3. No change in hypodensity within the left marii, consistent with chronic infarct. Dictated by: Nguyen Esteban M.D. on 04/12/2016 at 13:14 Approved by: Nguyen Esteban M.D. on 04/12/2016 at 13:16 PROCEDURE: X-RAY CHEST ONE VIEW, PORTABLE ([id number]) INDICATIONS: ams, hypoxia TECHNIQUE: One view of the chest was acquired. COMPARISON: [facility], CR, XR CHEST 1VW (PORTABLE), 04/10/2016, 17: 27. FINDINGS: Surgical changes and devices: Median sternotomy. Lungs and pleura: No pleural effusions or pneumothorax. Lungs are clear. Mediastinum: Moderate hiatal hernia. Mediastinal contours otherwise appear normal. Heart size is normal. Bones and chest wall: No suspicious bony lesions. Overlying soft tissues appear unremarkable. IMPRESSION: 1. No acute process. 2. Hiatal hernia. Dictated by: Nguyen Esteban M.D. on 04/12/2016 at 13:28 Approved by: Nguyen Esteban M.D. on 04/12/2016 at 13:28 Cardiac Echo Impressions Echocardiogram Report Name: YA RODRIGUEZ TStudy Date : 07/11/2015 Height: 75 in Hospital Exam [facility] Weight: 220 lb Gender: Male BSA: 2.3 m2 : 1930 Age: 84 yrs BP: 164/84 mmHg Reason For Study: TIA, AVR Ordering Physician: Performed By: Vandana Ngo Referring Physician: Jaqueline Rice Interpretation Summary Sinus bradycardia. Normal LV size, mild concentric LVH. Normal wall motion and LV systolic function. EF is 60-65%. Severe LAE; moderate JEANNIE. Mild MAC Aortic valve is replaced with stented bioprosthesis. It is functioning normally. Compared to prior study performed 06/05/2015 no significant changes have occurred. 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 This resulted in him having an aortic valve replacement 3 years ago. Patient did well after the surgery and returned to the [facility]. The patient did well at [facility] until June 2015 when he developed TIA-like symptoms. Patient was found to have cholecystitis and had a cholecystectomy and when ready to be discharged the [facility] refused to take him back to is medical problems. Patient was then discharged to the [facility] [place]. Patient did well at [facility] until he fell and hit his head on 04/10/2015. Patient reportedly had a fever of 101. Patient was evaluated in the emergency room at [facility] and the had no significant findings on CAT scan and had no significant findings on chest x-ray and was discharged home. The patient did well for a little while since Wednesday and then started developing features of disorientation again. This morning he was found slumped over in his wheelchair and had altered mental status he did not recognize people he that he normally recognizes and was not his normal mental self. Therefore patient was brought to [facility] emergency room for further evaluation and treatment. Patient was evaluated in the emergency room Kvng Aguero M.D. who felt the patient needed admission. Patient was admitted to the hospital service for further evaluation and treatment. Altered mental status with fever -Possible respiratory infection this patient has had respiratory symptoms according to his 2 nieces who are present at the bedside Snow and Renetta. Chest x -ray is negative however patient may be dehydrated and infiltrate is not yet showing up. He reportedly had a temperature of over 101F in the emergency room 2 days ago and temperature now is 99.9. Urinalysis is negative. -Check blood cultures which are pending -We will start empiric antibody therapy with Rocephin and Flagyl in the event patient may have aspirated and/or have bacterial pneumonia or bronchitis -There was no mention of sinusitis on the patient's CAT scan. 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 -Dr. Ryan will see the patient in a.m. and he would like the following test performed: MRI stroke protocol EEG Lamictal level Keppra level -In June 2015 Dr. Ryan made the following recommendations that were never followed at [facility] [place]: "I have stopped Vimpat at this point and restarted Keppra. An excellent option for him may be Lamictal. In lieu of Vimpat have started Lamictal 25 mg daily for 14 days followed by 50 mg daily for 14 days and then week five and beyond increasing by 50 mg daily every 14 days up to a goal dose of 150 mg twice daily. Once he is therapeutic on Lamictal, we can consider tapering off his Keppra. Lamictal also can provide a degree of mood stabilization and mood control and given that he has developed significant irritability on Keppra, this is an excellent choice for an agent." History of Rheumatic fever with Rheumatic heart disease -S/P bioprosthetic AVR 3 years ago at [facility] in [place] -Check echocardiogram in a.m. 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 Seizure history-check EEG Hypertension-monitor vitals Developmental delay patient stated school till the eighth grade and then stated elementary school for the next 4 years. Patient is unable to read or write, but is able to sign his name Allergic rhinitis Onychomycosis Difficulty with ambulation due to "deformed feet" Disposition: Patient will be admitted as an inpatient as he is likely to be here more than 2 midnights for evaluation and treatment of the above problems. Pain Evaluation: Adequate Pain Control GI Prophylaxis: Proton Pump Inhibitor VTE Prophylaxis: Sub-Q Enoxaparin Resuscitation Status: CPR: Attempt Resuscitation Alan Rondon MD Apr 12, 2016 19:10
--- NOTE | 2016-04-12 19:14 | NUR ---
Admission Admit from ER via gurney with niece at bedside. 2L O2 NC, KAREN, Brandin in place. Provider assessed. IVF initiated. Admission assessment completed. Family at bedside at this time.
[2016-04-12] MEDS: Fluconazole Inj 200 MG in IV Premix 1 EACH IV SCH (20:48)
[2016-04-12] MEDS: metroNIDAZOLE Inj 500 MG in IV Premix 1 EACH IV SCH ×2 (20:49→23:42)
[2016-04-12 20:50] VITALS: BP 153/76; PULSE 72; RESP 18; O2SAT 96
[2016-04-12] MEDS: levETIRAcetam 500 mg Tablet PO SCH (20:50)
[2016-04-12] MEDS: cefTRIAXone 2,000 mg/D5W 50 mL IV Minibag Plus IV SCH ×2 (23:25)
[2016-04-12 23:36] VITALS: BP 100/58; PULSE 57; RESP 21; O2SAT 96
[2016-04-13] MEDS: 0.9% Sodium Chloride 1,000 ML IV SCH ×2 (05:30→23:54)
[2016-04-13 06:47] VITALS: BP 130/55; PULSE 64; RESP 20; O2SAT 88
--- NOTE | 2016-04-13 06:58 | NUR ---
Fever Pt had an episode of fever last night 38.3. Administered Tylenol 650mg and has been afebrile since. Denies chest pain, sob, n/v and abd discomfort. Has been having anderson loose BM. Hourly rounding done, HS meds administered as scheduled and IVF running. Pt has slept most of the night.
[2016-04-13] MEDS ORDERED: WHEAT DEXTRIN PO SCH (08:30)
[2016-04-13] MEDS ORDERED: UBIDECARENONE 100 MG PO SCH (08:30)
[2016-04-13] MEDS: metroNIDAZOLE Inj 500 MG in IV Premix 1 EACH IV SCH ×2 (10:05→16:13)
[2016-04-13] MEDS: levETIRAcetam 500 mg Tablet PO SCH ×2 (10:07→20:57)
[2016-04-13] MEDS: lamoTRIgine 25 mg Tablet PO SCH (10:08)
[2016-04-13] MEDS: Pantoprazole 40 mg ER24 Tablet PO SCH (10:10)
[2016-04-13] MEDS: Fluconazole Inj 200 MG in IV Premix 1 EACH IV SCH (12:10)
--- NOTE | 2016-04-13 14:08 | NUR ---
Social Work Initial Assessment Attempted: SW attempted to meet with patient and niece at bedside to discuss discharge plan. Patient undergoing testing at this time at bedside and tech requested that SW report at a later time. SW to follow at a more appropriate time.SW to follow. PLAN: Initial Assessment pending. Champ HASTINGS
[2016-04-13 14:52] VITALS: BP 132/50; PULSE 66; RESP 20; O2SAT 92
--- NOTE | 2016-04-13 15:26 | NUR ---
Evaluation completed. Please go to "Notes" then click on "Assessments and Notes" (bottom left corner of screen). Then select appropriate discipline tab on top of screen.
--- NOTE | 2016-04-13 15:41 | NUR ---
Social Work-attempted assessment: Data:EMR reviewed. SW attempted to see pt and complete initial assessment, but pt currently not in the room. SW received a call from 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 SW to follow up with pt and family regarding assessment when appropriate. SW will continue to follow. Assessment:pt who comes from [facility]. Plan:Pt to discharge back to [facility] with Dr. Lees to follow when medically stable. SW to follow up with assessment tomorrow. SW will continue to follow. DARLING Lama
--- NOTE | 2016-04-13 16:43 | NUR ---
Off Unit Pt off unit to MRI at ~1450; A&O, IV SL, No tele, Brief changed prior to leaving. Left unit via w/c - wearing mask. Chart with pt. Pt returned to [facility] unit, room 3012, at ~1610. Sitting up at EOB - pt took PO Sinemet without issue, IV infusing afternoon abx. Call light in reach, window shade up to monitor pt at EOB. Care continues.
--- NOTE | 2016-04-13 16:49 | DRSVH ---
PROCEDURE: MRI STROKE PROTOCOL ([id number]) Pre- and post-contrast brain MRI, non-contrast brain MR angiogram, pre- and postcontrast neck MR oanh ogram INDICATIONS: Altered mental status/Possible CVA TECHNIQUE: Brain: Noncontrast axial T1 spin echo, axial T2 fast spin echo, sagittal and axial FLAIR, coronal T2 fast spin echo, axial gradient echo, axial diffusion and ADC through the brain. After the administr ation of contrast, axial 3D VIBE of the cranial vasculature and brain. Brain MRA: Non-contrast 3-D time of flight MR angiogram, with multiple exrqvoz-unscebzrj-ohjxatpqiv (MIP) reformats performed. Neck MRA: Axial and sagittal TruFISP through the neck. Coronal dynamic MR angiogram during administ ration of contrast in the arterial and venous phases, with 3-dimenstional vicvkpt-nvdazhdyd-uaxdeckav n (MIP) reformats constructed from subtraction images. COMPARISON: [facility], MR, MR STROKE PROTOCOL, 07/09/2015, 14:40. FINDINGS: Image quality: Excellent. BRAIN: CSF spaces: Ventricles are normal in size and shape. Basal cisterns are patent. No extra-axial flu id collections. Brain: No intracranial bleeds or mass effects. Alexandre-white matter interface is normal. Diffusion we ighted images show no acute ischemic insults. Brainstem appears normal. Normal intravascular flow v oids are present. No abnormal intracranial enhancement. There are scattered T2/FLAIR signal hyperin tense foci throughout the deep and periventricular white matter. Skull and face: Calvarial marrow signal is normal. Orbits appear normal. Sinuses: There is mild bilateral maxillary sinus mucosal thickening. The mastoid air cells are clear. The other paranasal sinuses are clear. BRAIN MR ANGIOGRAM: Anterior circulation: Intracranial internal carotid arteries are normal in size and enhancement. Th e flow within the paired anterior cerebral arteries is normal and symmetric. The flow within the mid dle cerebral arteries is normal and symmetric. The anterior communicating artery is seen. No stenos es, occlusions, or aneurysms. Posterior circulation: The visualized portions of the vertebral arteries demonstrate normal caliber, and join to form a normal appearing basilar artery. The flow within the posterior cerebral arteries is normal and symmetric. No stenoses, occlusions, or aneurysms. NECK MR ANGIOGRAM: Carotids: Great vessels demonstrate a conventional anatomy as they arise from the aortic arch. The origins of the common carotid arteries appear patent. The calibers and courses of both common caroti d arteries are normal. The bifurcation regions appear normal bilaterally. The internal carotid nichelle kari demonstrate normal course and caliber. Posterior circulation: The origins of the vertebral arteries appear patent. More superior portions of both vertebral arteries demonstrate normal course and caliber, and join to form a normal appearing basilar artery. Miscellaneous: Subclavian arteries appear patent. Pre-contrast images through the neck show no soft tissue abnormalities. IMPRESSION: BRAIN MRI: 1. No acute intracranial findings. Specifically, no findings to suggest acute or subacute infarct. 2. Chronic microvascular ischemic changes, as before. BRAIN MR ANGIOGRAM: 1. No stenosis, occlusion, or aneurysm. NECK MR ANGIOGRAM: 1. No stenosis, occlusion, or aneurysm. The estimate of stenosis included in the report of the imaging study was calculated using the NASCET method Dictated by: Hallie Campos M.D. on 04/13/2016 at 16:37 Approved by: Hallie Campos M.D. on 04/13/2016 at 16:47
--- NOTE | 2016-04-13 17:33 | PCM.PNMED ---
Subjective Date of Service Apr 13, 2016 Subjective Patient was examined at bedside today. Patient denies any chest pain, shortness of breath, nausea, vomiting, diarrhea. Patient does report cough Exam Vital Signs Vital Sign - Last Date Time Temp Pulse Resp B/P Pulse Ox O2 Delivery O2 Flow Rate FiO2 04/13/16 14:52 37.2 66 20 132/50 92 Room Air 04/12/16 23:36 2.00 Intake and Output 04/12/16 04/12/16 04/13/16 Cumulative From/Thru 15:00 23:00 07:00 04/12/16 12:12 - 04/13/16 07:00 Intake Total 1000 ml 326 ml 1326 ml Output Total 450 ml 600 ml 1050 ml Balance 1000 ml -450 ml -274 ml 276 ml Intake Oral 0 ml 0 ml IV Total 1000 ml 326 ml 1326 ml Output Urine Total 450 ml 600 ml 1050 ml # Bowel Movements 1 1 Exam Physical Exam: GEN: Patient was awake, alert, responding appropriately to questions HEENT: PERRLA, EOMI, Neck soft supple, trachea midline, nomocephalic/atraumatic CV: +S1/S2, tachycardic, systolic murmurs auscultated Respiratory: CTAB, no wheezes, rales, rhonchi GI: +bowel sounds x4, soft, compressible, non TTP EXT: no c/c/e Neuro: CN II-XII grossly intact Psych: mood and affect were appropriate IVs and Medications Medications Reviewed: Medications were reviewed in detail Medications Current Medications Al Hydrox/Mg Hydrox/Simethicone 30 ml Q6 PRN PO; Start 04/12/16 at 12:30; Stop 04/12/16 at 16:02; Status DC Ondansetron HCl Dose range: 4 mg to 8 mg Q4H PRN IVPUSH; Start 04/12/16 at 12: 30; Stop 04/12/16 at 16:02; Status DC Acetaminophen 975 mg Q6H PRN PO; Start 04/12/16 at 12:30; Stop 04/12/16 at 16: 02; Status DC Aspirin 162 mg DAILY PO Last administered on 04/13/16t 10:05; Admin Dose 162 MG ; Start 04/13/16 at 08:30 Docusate Sodium 100 mg DAILY PO; Start 04/13/16 at 08:30 Ferrous Sulfate 325 mg DAILY PO Last administered on 04/13/16 10:06; Admin Dose 325 MG; Start 04/13/16 at 08:30 Furosemide 10 mg DAILY PO Last administered on 04/13/16 10:08; Admin Dose 10 MG ; Start 04/13/16 at 08:30 Lamotrigine 25 mg DAILY PO Last administered on 04/13/16 10:08; Admin Dose 25 MG; Start 04/13/16 at 08:30 Levetriacetam 500 mg BID PO Last administered on 04/13/16 10:07; Admin Dose 500 MG; Start 04/12/16 at 20:30 Lisinopril 5 mg DAILY PO Last administered on 04/13/16 10:11; Admin Dose 5 MG; Start 04/13/16 at 08:30 Magnesium Oxide 400 mg DAILY PO Last administered on 04/13/16 10:10; Admin Dose 400 MG; Start 04/13/16 at 08:30 Metoprolol Tartrate 12.5 mg BID PO Last administered on 04/13/16 10:09; Admin Dose 12.5 MG; Start 04/12/16 at 20:30 Pantoprazole 40 mg DAILY PO Last administered on 04/13/16 10:10; Admin Dose 40 MG; Start 04/13/16 at 08:30 Calcium Carbonate 500 mg DAILY PO Last administered on 04/13/16 10:11; Admin Dose 500 MG; Start 04/13/16 at 08:30 Carbidopa/Levodopa 1 tablet TID PO Last administered on 04/13/16 16:12; Admin Dose 1 TABLET; Start 04/12/16 at 20:30 Non-Formulary Medication 2,000 unit DAILY PO; Start 04/13/16 at 08:30; Status UNV Clotrimazole 1 applic BID TOPICAL Last administered on 04/13/16 10:12; Admin Dose 1 APPLIC; Start 04/12/16 at 20:30 Loratadine 10 mg DAILY PO Last administered on 04/13/16 10:06; Admin Dose 10 MG ; Start 04/13/16 at 08:30 Multivitamins/ Minerals Therapeutic 1 tablet DAILY PO Last administered on 10:11; Admin Dose 1 TABLET; Start 04/13/16 at 08:30 Non-Formulary Medication 100 mg DAILY PO; Start 04/13/16 at 08:30; Status UNV Non-Formulary Medication 1 tbs DAILY PO; Start 04/13/16 at 08:30; Status UNV Cholecalciferol 2,000 unit DAILY PO Last administered on 04/13/16 10:11; Admin Dose 2,000 UNIT; Start 04/13/16 at 08:30 Enoxaparin Sodium 40 mg 40 mg DAILY SUBQ Last administered on 04/13/16 12:11; Admin Dose 40 MG; Start 04/13/16 at 08:30 Sodium Chloride 1,000 ml @ 80 mls/hr [id number] IV Last administered on 04/13/16 05:30; Admin Dose 80 MLS/HR; Start 04/12/16 at 15:42 Al Hydrox/Mg Hydrox/Simethicone 30 ml Q6H PRN PO; Start 04/12/16 at 15:45 Ondansetron HCl 4 to 8 mg Q4H PRN IVPUSH; Start 04/12/16 at 15:45 Senna 17.2 mg BID PRN PO; Start 04/12/16 at 15:45 Polyethylene Glycol 17 gm DAILY PRN PO; Start 04/12/16 at 15:45 Acetaminophen 650 mg 650 mg Q4H PRN PO Last administered on 04/12/16 20:53; Admin Dose 650 MG; Start 04/12/16 at 15:45 Metronidazole/ Sodium Chloride 500 mg/Premix 100 ml @ 200 mls/hr Q8 IV Last administered on 04/13/16 16:13; Admin Dose 200 MLS/HR; Start 04/12/16 at 17:50 Fluconazole/ Sodium Chloride 200 mg/Premix 100 ml @ 100 mls/hr Q24 IV Last administered on 04/13/16 12:10; Admin Dose 100 MLS/HR; Start 04/12/16 at 17:50 Ceftriaxone Sodium/Dextrose/ Water 50 ml @ 100 mls/hr Q24H IV Last administered on 04/12/16 23:25; Admin Dose 100 MLS/HR; Start 04/12/16 at 18:00 Lab and Diagnostics Result Diagram: 04/12/16 1245 04/12/16 1245 Microbiology 2 sets of blood cultures are pending from the emergency room department X-Rays, CTs and MRIs PROCEDURE: CT BRAIN WITHOUT CONTRAST ([id number]) INDICATIONS: ams TECHNIQUE: Noncontrast 4.5 mm thick angled axial sections acquired from the foramen magnum to the vertex, with coronal reformats. COMPARISON: [facility], CT, CT BRAIN WO CON, 04/10/2016, 17:28. FINDINGS: Image quality: Excellent. CSF spaces: Basal cisterns are patent. No extra-axial fluid collections. The ventricles are symmetric in size and shape. Brain: No intracranial bleeds or masses. No change in low-density within the left marii, consistent with chronic infarction. There is cerebral volume loss for age, with resultant ventricular and sulcal prominence. There are periventricular and deep white matter chronic small vessel ischemic changes. There is intracranial internal carotid artery atherosclerosis. Skull and face: Calvarium and visualized facial bones appear intact, without suspicious lesions. Sinuses: Mild left maxillary sinus mucosal thickening. Left maxillary sinus retention cyst. Mild bilateral ethmoid air cell mucosal thickening. Visualized sinuses and mastoids are otherwise clear. IMPRESSION: 1. No acute process. 2. Volume loss and small vessel ischemic disease. 3. No change in hypodensity within the left marii, consistent with chronic infarct. Dictated by: Nguyen Esteban M.D. on 04/12/2016 at 13:14 Approved by: Nguyen Esteban M.D. on 04/12/2016 at 13:16 PROCEDURE: X-RAY CHEST ONE VIEW, PORTABLE ([id number]) INDICATIONS: ams, hypoxia TECHNIQUE: One view of the chest was acquired. COMPARISON: [facility], CR, XR CHEST 1VW (PORTABLE), 04/10/2016, 17: 27. FINDINGS: Surgical changes and devices: Median sternotomy. Lungs and pleura: No pleural effusions or pneumothorax. Lungs are clear. Mediastinum: Moderate hiatal hernia. Mediastinal contours otherwise appear normal. Heart size is normal. Bones and chest wall: No suspicious bony lesions. Overlying soft tissues appear unremarkable. IMPRESSION: 1. No acute process. 2. Hiatal hernia. Dictated by: Nguyen Esteban M.D. on 04/12/2016 at 13:28 Approved by: Nguyen Esteban M.D. on 04/12/2016 at 13:28 Cardiac Echo Impressions Echocardiogram Report Name: YA RODRIGUEZ TStudy Date : 07/11/2015 Height: 75 in Hospital Exam Location: [facility] Weight: 220 lb Gender: Male BSA: 2.3 m2 : 1930 Age: 84 yrs BP: 164/84 mmHg Reason For Study: TIA, AVR Ordering Physician: Performed By: Vandana Ngo Referring Physician: Jaqueline Rice Interpretation Summary Sinus bradycardia. Normal LV size, mild concentric LVH. Normal wall motion and LV systolic function. EF is 60-65%. Severe LAE; moderate JEANNIE. Mild MAC Aortic valve is replaced with stented bioprosthesis. It is functioning normally. Compared to prior study performed 06/05/2015 no significant changes have occurred. Assessment & Plan Patient is an 84-year-old male who presents with altered mental status with fever secondary to influenza. Altered mental status with fever -Patient influenza a positive - Urinalysis is negative. -Check blood cultures negative 1 day -Continue empiric antibody therapy with Rocephin and Flagyl in the event patient may have aspirated and/or have bacterial pneumonia or bronchitis -There was no mention of sinusitis on the patient's CAT scan. 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 Ferguson would like the following test performed: MRI stroke protocol EEG Lamictal level Keppra level -In June 2015 Dr. Ferguson made the following recommendations that were never followed at [facility]: -We will appreciate recommendations from Dr. ferguson History of Rheumatic fever with Rheumatic heart disease -S/P bioprosthetic AVR 3 years ago at [facility] in [place] -Check echocardiogram results pending Paroxysmal Atrial fibrillation (paroxysmal identified May 2015) -on ASA, not warfarin (multiple falls, high risk for warfarin) -intolerant of amiodarone -Continue Metoprolol History of TIA June 2015 -Rule out recurrence or CVA -Check MRI stroke protocol -TIA workup is currently negative Chronic problems: Chronic thrombocytopenia (~60-80) -monitor with CBCs GERD - GI prophylaxis with Protonix Obstructive sleep apnea and patient will not wear a mask BPH- may need to check postvoid residual with bladder scan Coronary artery disease- no evidence of chest pain or acute coronary syndrome Left ventricular hypertrophy with chronic diastolic congestive heart failure or CHF-check echo in a.m. Seizure history-check EEG Hypertension-monitor vitals Developmental delay patient stated school till the eighth grade and then stated elementary school for the next 4 years. Patient is unable to read or write, but is able to sign his name Allergic rhinitis Onychomycosis Difficulty with ambulation due to "deformed feet" Disposition: Patient seems to be responding more appropriately to questions at this time. Patient symptoms may be likely secondary to infection with influenza. We will continue to follow up with blood cultures and look for other sources of infection. The patient's altered mental status could also be secondary to seizure activity. We will continue to follow up with the labs that Dr. Ferguson recommended and follow-up with his recommendations. I spoke with the patient's niece today Renetta feels that the infection could be the cause of the patient's altered mental status as prior to this admission the patient was very competent and able to carry on a decent conversation. GI Prophylaxis: Proton Pump Inhibitor VTE Prophylaxis: Sub-Q Enoxaparin Resuscitation Status: CPR: Attempt Resuscitation Time spent Greater than 35 minutes Roberta Sterling DO Apr 13, 2016 17:33
[2016-04-13] MEDS: cefTRIAXone 2,000 mg/D5W 50 mL IV Minibag Plus IV SCH ×2 (17:52)
[2016-04-13 20:52] VITALS: BP 118/52; PULSE 65; RESP 18; O2SAT 93
[2016-04-14] MEDS: metroNIDAZOLE Inj 500 MG in IV Premix 1 EACH IV SCH ×3 (00:39→16:34)
--- NOTE | 2016-04-14 01:09 | PROCED ---
[address] [address] EEG PATIENT: YA RODRIGUEZ : 1930 MR#: [id number] ADMIT: 04/12/2016 JOB ID: [id number] DATE OF SERVICE: 04/13/2016 HISTORY: The patient is an 85-year-old man with altered mental status. TECHNICAL DESCRIPTION: This digital EEG was recorded using 25 scalp and ear, and 2 EKG electrodes. It was reviewed in bipolar and referential montages following reformatting of the 10-20 International Electrode Placement System. During the recording, the patient was noted to be awake, drowsy, and asleep. The background was composed of 5-6 Hz, 20-50 microvolts posterior dominant rhythm that attenuated with eye opening. The rest of the background was composed of low voltage faster frequencies. There were no focal, lateralized, or epileptiform discharges noted. There were no seizures seen. Sleep was characterized by the attenuation of the alpha rhythm, the appearance of symmetrical vertex waves, heralding stage 1 of sleep. This was followed by the development of symmetrical sleep spindles and K complexes, heralding stage 2 of sleep. Photic stimulation from 1-30 Hz did not elicit any photic driving response. Hyperventilation was not performed. The EKG rhythm strip revealed a heart rate of 60 to 80 beats per minute with no apparent arrhythmias. IMPRESSION: This electroencephalogram performed in the awake, drowsy, and asleep states is abnormal. The slow background is nonspecific and may be seen in a wide variety of different clinical conditions, including neurodegenerative disorders. It may also be seen in mild cerebral cortical dysfunction/encephalopathy, which may be seen in a wide variety of different clinical disorders, including toxic, metabolic, hypoxia, inflammatory, autoimmune and infectious states. Clinical correlation is advised. LEIGHAD
[2016-04-14] MEDS: 0.9% Sodium Chloride 1,000 ML IV SCH ×2 (05:12→14:41)
--- NOTE | 2016-04-14 05:23 | NUR ---
NOC/ABx Pt denies chest pain, sob or n/v and diarrhea. VSS and has been afebrile overnight. Hourly rounding done, bed alarm on and bed is in lowest position for safety. Will continue to monitor.
[2016-04-14 05:30] VITALS: BP 145/77; PULSE 60; RESP 16; O2SAT 94
[2016-04-14 07:00] LABS: Mean Corpuscular Hemoglobin 30.6 pg (27.0-35.0); Mean Corpuscular Volume 93.7 fL (81-100)
[2016-04-14] MEDS: Fluconazole Inj 200 MG in IV Premix 1 EACH IV SCH (08:06)
[2016-04-14] MEDS: Pantoprazole 40 mg ER24 Tablet PO SCH (08:10)
[2016-04-14] MEDS: levETIRAcetam 500 mg Tablet PO SCH ×2 (08:11→21:52)
[2016-04-14] MEDS: lamoTRIgine 25 mg Tablet PO SCH (08:17)
--- NOTE | 2016-04-14 09:25 | NUR ---
Evaluation completed. Please go to "Notes" then click on "Assessments and Notes" (bottom left corner of screen). Then select appropriate discipline tab on top of screen.
--- NOTE | 2016-04-14 10:14 | CONS ---
[address] [address] CONSULTATION REPORT PATIENT: YA RODRIGUEZ : 1930 MR#: [id number] ADMIT: 04/12/2016 JOB ID: [id number] DATE OF SERVICE: 04/12/2016 CHIEF COMPLAINT: Change in mental status. 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 He was noted to have a change in mental status and was brought to the emergency department. He appeared lethargic and was unable to provide a history. However, family members did provide a history. REVIEW OF SYSTEMS: I was unable to perform this. However, family members reported that he became more lethargic lately, and they showed me a picture of him leaning to one side in a wheelchair. I was told that in the past when he did experience these type of neurologic symptoms they identified underlying infectious etiologies for these. ALLERGIES: No known drug allergies. MEDICATIONS AT HOME: Include: 1. Aspirin. 2. Calcium carbonate. 3. Vitamin D2. 4. Carbidopa/levodopa 25/100, 1 tablet p.o. 3 times daily. 5. Clotrimazole 1%. 6. Docusate. 7. Ferrous sulfate. 8. Furosemide. 9. Lamotrigine 25 mg daily. 10. Levetiracetam 500 mg p.o. b.i.d. 11. Lisinopril. 12. Loratadine. 13. Magnesium oxide. 14. Metoprolol. 15. Multivitamin with minerals. 16. Pantoprazole. 17. Coenzyme Q10. 18. Benefiber. PAST MEDICAL HISTORY: He does have a past medical history of atypical Parkinson disease, rheumatic fever with rheumatic heart disease, status post bioprosthetic aortic valve replacement three years ago at [facility], paroxysmal atrial fibrillation presently controlled on aspirin, as he has had multiple falls secondary to the atypical Parkinson disease and therefore, is too high risk for warfarin according to Cardiology, history of a transient ischemic attack, chronic thrombocytopenia, gastroesophageal reflux disease. Obstructive sleep apnea, however, he does not feel comfortable wearing a CPAP mask. Benign prostatic hypertrophy. Coronary artery disease. Left ventricular hypertrophy with chronic diastolic congestive heart failure. 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 Reported history of hypertension. Reported history of developmental delay, which was attributed to being a "blue baby." History of allergic rhinitis, onychomycosis, reported history of difficulty with ambulation secondary to a podiatric etiology. SURGICAL HISTORY: Porcine aortic valve replacement, cholecystectomy, colonoscopy in the recent past with one polyp removed. FAMILY HISTORY: No neurologic disorders. SOCIAL HISTORY: He does smoke cigars. No alcohol except social. He lives in a correction facility, and he does not engage in any recreational drug use. PHYSICAL EXAMINATION: Temperature 36.7, pulse of 73, respiratory rate of 18, blood pressure 107/50, pulse oximetry of 95% on room air. General: He is lethargic; however, when stimulated, opens his eyes and does follow commands. His face does appear symmetrical. Facial sensation was intact to light touch and temperature. Pupils equal, round, reactive to light. Extraocular movements were smooth and conjugate with no evidence of nystagmus. There is no aphasia. Face appeared symmetrical. He does have masked facies. Auditory sensation was intact to finger rub. Palatal elevation was symmetrical. Tongue was midline. Sternocleidomastoid and trapezii were 5/5 bilaterally. NEUROLOGICAL EXAMINATION: Increased tone in the bilateral upper and lower extremities. However, tone was increased more in the upper extremities. Coordination, he did appear mildly confused. However, was able to take his index finger and touch his nose without any evidence of dysmetria on both sides. Negative Kernig. Negative Brudzinski. Skin was warm to the touch. Deep tendon reflexes symmetrical. Plantars flexor bilaterally. Gait was deferred. IMPRESSION: My suspicion is that this may represent an underlying encephalopathy, likely toxic metabolic encephalopathy. However, I would like to exclude the possibility of any other neurologic etiology such as an ictal etiology versus a cerebrovascular etiology. I do recommend obtaining levels, Lamictal and levetiracetam. I do recommend obtaining an electroencephalogram. I also recommend obtaining a magnetic resonance imaging study of his brain. He does have paroxysmal atrial fibrillation and a history of a transient ischemic attack, and he presently also has hypertension and is presently on aspirin. He may also benefit from a fasting lipid profile to be performed in the morning. I do recommend a continued evaluation to exclude a possible metabolic or infectious etiology for his underlying suspected encephalopathy, especially if the rest of the workup comes back unremarkable. Thank you, again, Dr. Kvng Souza MD for allowing me to participate in the care of your patient. Please feel free to contact me with any questions or concerns.
--- NOTE | 2016-04-14 10:25 | NUR ---
FRANCK signed. DARLING Lama
--- NOTE | 2016-04-14 10:40 | NUR ---
Social Work-initial assessment: Data:See initial assessment. Pt is a 85 y/o male who was admitted on 04/12/16 for AMS per H&P. Pt's insurance is [employer] and PCP is Alexandre Lees MD. EMR reviewed. Pt's readmission score is 3-high risk. SW met with pt and stanley Adamson at bedside to discuss discharge planning, SW role explained. Pt resides at [facility] where he remains independent with basic ADLs. Pt uses a fww or w/c at baseline and does not drive. pt has history of HH. No alf care insurance or VA benefits. DPOA/ advanced directive paperwork completed. SW confirmed plan of returning to [facility] at discharge. KARISHMA spoke with Juliet in admissions and they are agreeable for pt to return. Paperwork in the chart. SW will continue to follow. 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 Plan: Pt to discharge back to [facility] with Dr. Lees to follow when medically stable. Paperwork in the chart. SW will continue to follow. DARLING Lama Addendum: 04/14/16 at 1043 by BELINDA TOMLIN Amended: Links added.
--- NOTE | 2016-04-14 12:37 | DRSVH ---
[facility] [address] [place] [address] Echocardiogram Report Name: YA RODRIGUEZ TStudy Date : 04/14/2016 Height: 75 in Hospital Exam Location: [facility] Weight: 208 lb Gender: Male BSA: 2. 2 m2 : 1930 Age: 85 yrs BP: 145 /77 mmHg Reason For Study: ALTERED MENTAL STATUS, POSSIBLE CVA History: AVR Ordering Physician: HOSPITALIST [facility] Performed By: Grecia Cordero Referring Physician: DR. HILLS, DR. MORENO Interpretation Summary 1. Normal left ventricular size with mild to moderately increased wall thickness and normal systolic function 2. The right ventricle appears at the upper limits of normal in size with normal systolic function. 3. The prosthetic aortic valve appears well seated. The valve appears to be functioning normally Compared to the previous study, no significant changes Procedure: A two-dimensional transthoracic echocardiogram with color flow and Doppler was performed. The apical views were difficult to obtain and are suboptimal in quality. A contrast injection of Definity was performed to improve assessment of LV function. Contrast was injected into an intravenous site in the left arm. A total of 2 cc of contrast was given. Comparison is made with the echocardiogram of 07-11-2015. The patient was in normal sinus rhythm during the exam. The patient did well with the Definity Contrast. Left Ventricle: The left ventricle is normal in size. Left ventricular wall thickness is mild-moderately increased. The LVOT diameter is 2.1 cm. The left ventricular outflow tract velocities are elevated at 1.44m/s. Left ventricular systolic function is normal. No obvious wall motion abnormalities appreciated. Right Ventricle: Not optimally visualized but appears at the upper limits of normal size. The right ventricular systolic function is normal. Atria: The left atrium is severely dilated. The right atrium is mildly dilated. There is no Doppler evidence for an atrial septal defect. Mitral Valve: The mitral valve is normal. There is mild mitral annular calcification. There is trace mitral regurgitation. Aortic Valve: There is a bioprosthetic aortic valve. The prosthetic aortic valve is well-seated. The peak aortic velocity is 2.6 m/sec. The aortic valve mean gradient is 14 mmHg. The calculated aortic valve area is 2.3 cm2. The peak aortic velocity on the previous exam was 2.1 m/sec. No aortic regurgitation is present. Tricuspid Valve: The tricuspid valve leaflets are thin and pliable. There is mild tricuspid regurgitation. The right ventricular systolic pressure is estimated at 40 mmHg assuming a right atrial pressure of 3 mm Hg. Pulmonic Valve: The pulmonic valve leaflets are thin and pliable; valve motion is normal. There is a trace or physiologic amount of pulmonic regurgitation. Great Vessels: The aortic root is mildly dilated. The ascending aorta is mildly enlarged. The pulmonary artery is normal size. The IVC is of normal diameter and collapses greater than 50% with a sniff. This suggests a low right atrial pressure of 3 mm Hg. Pericardium/ Pleura There is no pericardial effusion. There is no pleural effusion. MMode/2D Measurements & Calculations LVIDd: 4.8 cm LA dimension: 5.2 cm RA long axis LVOT diam LVIDs: 3.0 cm FS: 36.7 % LA A2 area: 32.2 cm RA area AoV Opening IVSd: 1.5 cm LA A4 area: 41.4 cm LVPWd: 1.2 cm LA length (vol): 7.4 cm: 26.1 cm Ao root diam LA vol: 152.4 ml RA vol LA vol index : 88.4 ml asc Aorta RA Diam: 3.7 cm : 39.6 mm/ IVC diam: 2.0 cm RVDd major : 7.2 cm LV yun. diameter/BSA LV sys. diameter/BSA RVD2 (mid) (cm/m^2): 2.1 (cm/m^2): 1.4 : 3.9 cm Doppler Measurements & Calculations Ao V2 max MV E max max MV E/A: 1.1 TR max max : 262.8 cm/sec : 105.6 cm/sec Lat Peak E' Max : 302.8 cm/sec Ao max PG MV A max max TR max PG : 27.6 mmHg : 93.9 cm/sec E/E' lat: 11.9 : 36.7 mmHg Ao mean PG MV P1/2t: 62.2 msec Pulm A Revs Dur PA V2 max : 13.8 mmHg : 87.9 cm/sec LVOT Max Max MV A dur: 0.15 sec PA mean PG : 143.8 cm/sec NICOLE(I,D): 2.3 cm PA Accel Time sev ratio : 0.12 sec MV dec time MV P1/2t max max Ao V2 mean LV V1 max PG : 0.20 sec : 174.5 cm/sec Ao V2 VTI: 48.4 cm LV V1 VTI MVA(P1/2t): 3.5 cm2 : 32.9 cm NICOLE(V,D): 1.9 cm2 PA V2 mean NICOLE indexed to BSA Pulm A Revs Dur - MV A : 61.1 cm/sec (cm^2/m^2): 1.0 Dur: -0.02 msec Reading Physician:12:37 PM
[2016-04-14 13:06] VITALS: BP 154/82; PULSE 70; RESP 17; O2SAT 95
--- NOTE | 2016-04-14 16:17 | PCM.PNMED ---
Subjective Date of Service Apr 14, 2016 Subjective Patient was examined at bedside today. Patient denies any chest pain, shortness of breath, nausea, vomiting, diarrhea. Patient was more alert today and responding appropriately to questions. Exam Vital Signs Vital Sign - Last Date Time Temp Pulse Resp B/P Pulse Ox O2 Delivery O2 Flow Rate FiO2 04/14/16 13:06 36.7 70 17 154/82 95 Room Air 04/12/16 23:36 2.00 Intake and Output 04/13/16 04/13/16 04/14/16 Cumulative From/Thru 15:00 23:00 07:00 04/12/16 12:12 - 04/14/16 05:30 Intake Total 969 ml 1192 ml 3487 ml Output Total 500 ml 1550 ml Balance 969 ml 692 ml 1937 ml Intake Oral 300 ml 300 ml IV Total 969 ml 892 ml 3187 ml Output Urine Total 500 ml 1550 ml # Bowel Movements 1 Exam Physical Exam: GEN: Patient was awake, alert, responding appropriately to questions, AAO 4 HEENT: PERRLA, EOMI, Neck soft supple, trachea midline, right forehead laceration sutured no signs of erythema or infection CV: +S1/S2, RRR, systolic murmurs auscultated Respiratory: Coarse breath sounds positive rhonchi GI: +bowel sounds x4, soft, compressible, non TTP EXT: no c/c/e Neuro: CN II-XII grossly intact Psych: mood and affect were appropriate IVs and Medications Medications Reviewed: Medications were reviewed in detail Medications Current Medications Aspirin 162 mg DAILY PO Last administered on 04/14/16 09:34; Admin Dose 162 MG ; Start 04/13/16 at 08:30 Docusate Sodium 100 mg DAILY PO Last administered on 04/14/16 08:11; Admin Dose 100 MG; Start 04/13/16 at 08:30 Ferrous Sulfate 325 mg DAILY PO Last administered on 04/14/16 08:10; Admin Dose 325 MG; Start 04/13/16 at 08:30 Furosemide 10 mg DAILY PO Last administered on 04/14/16 08:12; Admin Dose 10 MG ; Start 04/13/16 at 08:30 Lamotrigine 25 mg DAILY PO Last administered on 04/14/16 08:17; Admin Dose 25 MG; Start 04/13/16 at 08:30 Levetriacetam 500 mg BID PO Last administered on 04/14/16 08:11; Admin Dose 500 MG; Start 04/12/16 at 20:30 Lisinopril 5 mg DAILY PO Last administered on 04/14/16 08:10; Admin Dose 5 MG; Start 04/13/16 at 08:30 Magnesium Oxide 400 mg DAILY PO Last administered on 04/14/16 08:10; Admin Dose 400 MG; Start 04/13/16 at 08:30 Metoprolol Tartrate 12.5 mg BID PO Last administered on 04/14/16 08:11; Admin Dose 12.5 MG; Start 04/12/16 at 20:30 Pantoprazole 40 mg DAILY PO Last administered on 04/14/16 08:10; Admin Dose 40 MG; Start 04/13/16 at 08:30 Calcium Carbonate 500 mg DAILY PO Last administered on 04/14/16 09:33; Admin Dose 500 MG; Start 04/13/16 at 08:30 Carbidopa/Levodopa 1 tablet TID PO Last administered on 04/14/16 14:41; Admin Dose 1 TABLET; Start 04/12/16 at 20:30 Non-Formulary Medication 2,000 unit DAILY PO; Start 04/13/16 at 08:30; Status UNV Clotrimazole 1 applic BID TOPICAL Last administered on 04/14/16 09:34; Admin Dose 1 APPLIC; Start 04/12/16 at 20:30 Loratadine 10 mg DAILY PO Last administered on 04/14/16 08:11; Admin Dose 10 MG ; Start 04/13/16 at 08:30 Multivitamins/ Minerals Therapeutic 1 tablet DAILY PO Last administered on 08:11; Admin Dose 1 TABLET; Start 04/13/16 at 08:30 Non-Formulary Medication 100 mg DAILY PO; Start 04/13/16 at 08:30; Status UNV Non-Formulary Medication 1 tbs DAILY PO; Start 04/13/16 at 08:30; Status UNV Cholecalciferol 2,000 unit DAILY PO Last administered on 04/14/16 08:10; Admin Dose 2,000 UNIT; Start 04/13/16 at 08:30 Enoxaparin Sodium 40 mg 40 mg DAILY SUBQ Last administered on 04/14/16 08:12; Admin Dose 40 MG; Start 04/13/16 at 08:30 Metronidazole/ Sodium Chloride 500 mg/Premix 100 ml @ 200 mls/hr Q8 IV Last administered on 04/14/16 09:33; Admin Dose 200 MLS/HR; Start 04/12/16 at 17:50 Fluconazole/ Sodium Chloride 200 mg/Premix 100 ml @ 100 mls/hr Q24 IV Last administered on 04/14/16 08:06; Admin Dose 100 MLS/HR; Start 04/12/16 at 17:50 Ceftriaxone Sodium/Dextrose/ Water 50 ml @ 100 mls/hr Q24H IV Last administered on 04/13/16 17:52; Admin Dose 100 MLS/HR; Start 04/12/16 at 18:00 Benzonatate 100 mg TID PRN PO; Start 04/13/16 at 17:25 Lab and Diagnostics Result Diagram: 04/14/16 0620 04/14/16 0620 Microbiology 2 sets of blood cultures are pending from the emergency room department X-Rays, CTs and MRIs PROCEDURE: CT BRAIN WITHOUT CONTRAST ([id number]) INDICATIONS: ams TECHNIQUE: Noncontrast 4.5 mm thick angled axial sections acquired from the foramen magnum to the vertex, with coronal reformats. COMPARISON: [facility], CT, CT BRAIN WO CON, 04/10/2016, 17:28. FINDINGS: Image quality: Excellent. CSF spaces: Basal cisterns are patent. No extra-axial fluid collections. The ventricles are symmetric in size and shape. Brain: No intracranial bleeds or masses. No change in low-density within the left marii, consistent with chronic infarction. There is cerebral volume loss for age, with resultant ventricular and sulcal prominence. There are periventricular and deep white matter chronic small vessel ischemic changes. There is intracranial internal carotid artery atherosclerosis. Skull and face: Calvarium and visualized facial bones appear intact, without suspicious lesions. Sinuses: Mild left maxillary sinus mucosal thickening. Left maxillary sinus retention cyst. Mild bilateral ethmoid air cell mucosal thickening. Visualized sinuses and mastoids are otherwise clear. IMPRESSION: 1. No acute process. 2. Volume loss and small vessel ischemic disease. 3. No change in hypodensity within the left marii, consistent with chronic infarct. Dictated by: Nguyen Esteban M.D. on 04/12/2016 at 13:14 Approved by: Nguyen Esteban M.D. on 04/12/2016 at 13:16 PROCEDURE: X-RAY CHEST ONE VIEW, PORTABLE ([id number]) INDICATIONS: ams, hypoxia TECHNIQUE: One view of the chest was acquired. COMPARISON: [facility], CR, XR CHEST 1VW (PORTABLE), 04/10/2016, 17: 27. FINDINGS: Surgical changes and devices: Median sternotomy. Lungs and pleura: No pleural effusions or pneumothorax. Lungs are clear. Mediastinum: Moderate hiatal hernia. Mediastinal contours otherwise appear normal. Heart size is normal. Bones and chest wall: No suspicious bony lesions. Overlying soft tissues appear unremarkable. IMPRESSION: 1. No acute process. 2. Hiatal hernia. Dictated by: Nguyen Esteban M.D. on 04/12/2016 at 13:28 Approved by: Nguyen Esteban M.D. on 04/12/2016 at 13:28 PROCEDURE: MRI STROKE PROTOCOL ([id number]) Pre- and post-contrast brain MRI, non-contrast brain MR angiogram, pre- and postcontrast neck MR angiogram INDICATIONS: Altered mental status/Possible CVA TECHNIQUE: Brain: Noncontrast axial T1 spin echo, axial T2 fast spin echo, sagittal and axial FLAIR, coronal T2 fast spin echo, axial gradient echo, axial diffusion and ADC through the brain. After the administration of contrast, axial 3D VIBE of the cranial vasculature and brain. Brain MRA: Non-contrast 3-D time of flight MR angiogram, with multiple maximum- intensity-projection (MIP) reformats performed. Neck MRA: Axial and sagittal TruFISP through the neck. Coronal dynamic MR angiogram during administration of contrast in the arterial and venous phases, with 3-dimenstional iifclhv-[id number]-ghmncgzlbt (MIP) reformats constructed from subtraction images. COMPARISON: [facility], , MR STROKE PROTOCOL, 07/09/2015, 14:40. FINDINGS: Image quality: Excellent. BRAIN: CSF spaces: Ventricles are normal in size and shape. Basal cisterns are patent. No extra-axial fluid collections. Brain: No intracranial bleeds or mass effects. Alexandre-white matter interface is normal. Diffusion weighted images show no acute ischemic insults. Brainstem appears normal. Normal intravascular flow voids are present. No abnormal intracranial enhancement. There are scattered T2/FLAIR signal hyperintense foci throughout the deep and periventricular white matter. Skull and face: Calvarial marrow signal is normal. Orbits appear normal. Sinuses: There is mild bilateral maxillary sinus mucosal thickening. The mastoid air cells are clear. The other paranasal sinuses are clear. BRAIN MR ANGIOGRAM: Anterior circulation: Intracranial internal carotid arteries are normal in size and enhancement. The flow within the paired anterior cerebral arteries is normal and symmetric. The flow within the middle cerebral arteries is normal and symmetric. The anterior communicating artery is seen. No stenoses, occlusions, or aneurysms. Posterior circulation: The visualized portions of the vertebral arteries demonstrate normal caliber, and join to form a normal appearing basilar artery. The flow within the posterior cerebral arteries is normal and symmetric. No stenoses, occlusions, or aneurysms. NECK MR ANGIOGRAM: Carotids: Great vessels demonstrate a conventional anatomy as they arise from the aortic arch. The origins of the common carotid arteries appear patent. The calibers and courses of both common carotid arteries are normal. The bifurcation regions appear normal bilaterally. The internal carotid arteries demonstrate normal course and caliber. Posterior circulation: The origins of the vertebral arteries appear patent. More superior portions of both vertebral arteries demonstrate normal course and caliber, and join to form a normal appearing basilar artery. Miscellaneous: Subclavian arteries appear patent. Pre-contrast images through the neck show no soft tissue abnormalities. IMPRESSION: BRAIN MRI: 1. No acute intracranial findings. Specifically, no findings to suggest acute or subacute infarct. 2. Chronic microvascular ischemic changes, as before. BRAIN MR ANGIOGRAM: 1. No stenosis, occlusion, or aneurysm. NECK MR ANGIOGRAM: 1. No stenosis, occlusion, or aneurysm. The estimate of stenosis included in the report of the imaging study was calculated using the NASCET method Dictated by: Hallie Campos M.D. on 04/13/2016 at 16:37 Approved by: Hallie Campos M.D. on 04/13/2016 at 16:47 Cardiac Echo Impressions Echocardiogram Report Name: YA RODRIGUEZ TStudy Date : 07/11/2015 Height: 75 in Hospital Exam Location: [facility] Weight: 220 lb Gender: Male BSA: 2.3 m2 : 1930 Age: 84 yrs BP: 164/84 mmHg Reason For Study: TIA, AVR Ordering Physician: Performed By: Vandana Ngo Referring Physician: Jaqueline Rice Interpretation Summary Sinus bradycardia. Normal LV size, mild concentric LVH. Normal wall motion and LV systolic function. EF is 60-65%. Severe LAE; moderate JEANNIE. Mild MAC Aortic valve is replaced with stented bioprosthesis. It is functioning normally. Compared to prior study performed 06/05/2015 no significant changes have occurred. Assessment & Plan Patient is an 84-year-old male who presents with altered mental status with fever secondary to influenza. Altered mental status with fever -Patient influenza a positive - Urinalysis is negative. -Check blood cultures negative positive for gram-positive rods -Continue empiric antibody therapy with Rocephin and Flagyl in the event patient may have aspirated and/or have bacterial pneumonia or bronchitis -There was no mention of sinusitis on the patient's CAT scan. 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 Ferguson would like the following test performed: MRI stroke protocol EEG Lamictal level Keppra level -In June 2015 Dr. Ferguson made the following recommendations that were never followed at [facility]: -We will appreciate recommendations from Dr. ferguson History of Rheumatic fever with Rheumatic heart disease -S/P bioprosthetic AVR 3 years ago at [facility] in [place] -Check echocardiogram results pending Paroxysmal Atrial fibrillation (paroxysmal identified May 2015) -on ASA, not warfarin (multiple falls, high risk for warfarin) -intolerant of amiodarone -Continue Metoprolol History of TIA June 2015 -Rule out recurrence or CVA -Check MRI stroke protocol -TIA workup is currently negative Chronic problems: Chronic thrombocytopenia (~60-80) -monitor with CBCs GERD - GI prophylaxis with Protonix Obstructive sleep apnea and patient will not wear a mask BPH- may need to check postvoid residual with bladder scan Coronary artery disease- no evidence of chest pain or acute coronary syndrome Left ventricular hypertrophy with chronic diastolic congestive heart failure or CHF-check echo in a.m. Seizure history-check EEG Hypertension-monitor vitals Developmental delay patient stated school till the eighth grade and then stated elementary school for the next 4 years. Patient is unable to read or write, but is able to sign his name Allergic rhinitis Onychomycosis Difficulty with ambulation due to "deformed feet" Disposition: Patient seems to be responding more appropriately to questions at this time. The patient may have encephalopathy 2/2 a combination of influenza and a positive blood culture of gram-positive rods. We will continue the patient on his current antibiotic regimen as this does seem to be working. Dr. ferguson is still following the case and feels that the patient has an encephalopathy but the etiology is still undetermined but could be secondary to infection. Still waiting on the patient's seizure medication levels to ensure that the patientis being properly medicated . GI Prophylaxis: Proton Pump Inhibitor VTE Prophylaxis: Sub-Q Enoxaparin VTE Mechanical Devices: Venous Foot Pump Resuscitation Status: CPR: Attempt Resuscitation Roberta Sterling DO Apr 14, 2016 16:17
[2016-04-14] MEDS: cefTRIAXone 2,000 mg/D5W 50 mL IV Minibag Plus IV SCH ×2 (18:09)
[2016-04-14 20:51] VITALS: BP 164/80; PULSE 76; RESP 20; O2SAT 93
--- NOTE | 2016-04-14 23:45 | NUR ---
Activity Pt up to BSC with 1:1 per ext assistance from bed/bsc to standing position using FWW. Pt produced an XL loose green BM. Denies chest pain, shortness of breath, and discomfort. General weakness noted with transfer, but tolerated the transfers well without distress noted.
[2016-04-15] MEDS: metroNIDAZOLE Inj 500 MG in IV Premix 1 EACH IV SCH ×3 (00:19→16:21)
[2016-04-15] MEDS: 0.9% Sodium Chloride 1,000 ML IV SCH ×3 (04:52→22:04)
[2016-04-15 05:20] VITALS: BP 154/75; PULSE 89; RESP 20; O2SAT 90
[2016-04-15 06:47] LABS: Mean Corpuscular Hemoglobin 30.3 pg (27.0-35.0)
[2016-04-15] MEDS: Fluconazole Inj 200 MG in IV Premix 1 EACH IV SCH (08:45)
[2016-04-15] MEDS: lamoTRIgine 25 mg Tablet PO SCH (08:45)
[2016-04-15] MEDS: Pantoprazole 40 mg ER24 Tablet PO SCH (08:46)
[2016-04-15] MEDS: levETIRAcetam 500 mg Tablet PO SCH ×2 (08:46→20:31)
--- NOTE | 2016-04-15 11:43 | NUR ---
Social Work-readiness for discharge: Data:EMR reviewed. Pt is on day 3 of hospitalization for AMS per H&P. Pt is not medically stable today, but may be ready tomorrow. Pt resides at [facility] and they are ready to accept pt back when medically stable. Pt and niece in agreement with this plan. Paperwork in the chart. SW will continue to follow. Assessment:Pt who resides at [facility]. Plan:Pt to discharge back to [facility] with Dr. Lees to follow when medically stable. Paperwork in the chart. SW will continue to follow. DARLING Lama
[2016-04-15 12:31] VITALS: BP 134/68; PULSE 75; RESP 20; O2SAT 93
--- NOTE | 2016-04-15 13:45 | PCM.PNMED ---
Subjective Date of Service Apr 15, 2016 Subjective Patient was examined at bedside today. Patient denies any chest pain, shortness of breath, nausea, vomiting, diarrhea. Patient seems to be back to his baseline mentation as the patient was communicating well and even joking. Patient does report some loose stools. Exam Vital Signs Vital Sign - Last Date Time Temp Pulse Resp B/P Pulse Ox O2 Delivery O2 Flow Rate FiO2 04/15/16 12:31 37.0 75 20 134/68 93 Room Air 04/12/16 23:36 2.00 Intake and Output 04/14/16 04/14/16 04/15/16 Cumulative From/Thru 15:00 23:00 07:00 04/12/16 12:12 - 04/15/16 05:20 Intake Total 1768 ml 400 ml 5655 ml Output Total 500 ml 600 ml 2650 ml Balance 1268 ml -200 ml 3005 ml Intake Oral 586 ml 400 ml 1286 ml IV Total 1182 ml 4369 ml Output Urine Total 500 ml 600 ml 2650 ml # Bowel Movements 1 2 4 Exam Physical Exam: GEN: Patient was awake, alert, responding appropriately to questions HEENT: PERRLA, EOMI, Neck soft supple, trachea midline, head laceration over the right eye sutures in place no signs of erythema or edema CV: +S1/S2, irregular rate, systolic murmurs auscultated Respiratory: CTAB, no wheezes, rales, rhonchi GI: +bowel sounds x4, soft, compressible, non TTP EXT: no c/c/e Neuro: CN II-XII grossly intact Psych: mood and affect were appropriate IVs and Medications Medications Reviewed: Medications were reviewed in detail Medications Current Medications Benzonatate 100 mg TID PRN PO; Start 04/13/16 at 17:25 Lab and Diagnostics Result Diagram: 04/15/16 0609 04/15/16 0609 Microbiology 2 sets of blood cultures are pending from the emergency room department X-Rays, CTs and MRIs PROCEDURE: CT BRAIN WITHOUT CONTRAST ([id number]) INDICATIONS: ams TECHNIQUE: Noncontrast 4.5 mm thick angled axial sections acquired from the foramen magnum to the vertex, with coronal reformats. COMPARISON: [facility], CT, CT BRAIN WO CON, 04/10/2016, 17:28. FINDINGS: Image quality: Excellent. CSF spaces: Basal cisterns are patent. No extra-axial fluid collections. The ventricles are symmetric in size and shape. Brain: No intracranial bleeds or masses. No change in low-density within the left marii, consistent with chronic infarction. There is cerebral volume loss for age, with resultant ventricular and sulcal prominence. There are periventricular and deep white matter chronic small vessel ischemic changes. There is intracranial internal carotid artery atherosclerosis. Skull and face: Calvarium and visualized facial bones appear intact, without suspicious lesions. Sinuses: Mild left maxillary sinus mucosal thickening. Left maxillary sinus retention cyst. Mild bilateral ethmoid air cell mucosal thickening. Visualized sinuses and mastoids are otherwise clear. IMPRESSION: 1. No acute process. 2. Volume loss and small vessel ischemic disease. 3. No change in hypodensity within the left marii, consistent with chronic infarct. Dictated by: Nguyen Esteban M.D. on 04/12/2016 at 13:14 Approved by: Nguyen Esteban M.D. on 04/12/2016 at 13:16 PROCEDURE: X-RAY CHEST ONE VIEW, PORTABLE ([id number]) INDICATIONS: ams, hypoxia TECHNIQUE: One view of the chest was acquired. COMPARISON: [facility], , XR CHEST 1VW (PORTABLE), 04/10/2016, 17: 27. FINDINGS: Surgical changes and devices: Median sternotomy. Lungs and pleura: No pleural effusions or pneumothorax. Lungs are clear. Mediastinum: Moderate hiatal hernia. Mediastinal contours otherwise appear normal. Heart size is normal. Bones and chest wall: No suspicious bony lesions. Overlying soft tissues appear unremarkable. IMPRESSION: 1. No acute process. 2. Hiatal hernia. Dictated by: Nguyen Esteban M.D. on 04/12/2016 at 13:28 Approved by: Nguyen Esteban M.D. on 04/12/2016 at 13:28 PROCEDURE: MRI STROKE PROTOCOL ([id number]) Pre- and post-contrast brain MRI, non-contrast brain MR angiogram, pre- and postcontrast neck MR angiogram INDICATIONS: Altered mental status/Possible CVA TECHNIQUE: Brain: Noncontrast axial T1 spin echo, axial T2 fast spin echo, sagittal and axial FLAIR, coronal T2 fast spin echo, axial gradient echo, axial diffusion and ADC through the brain. After the administration of contrast, axial 3D VIBE of the cranial vasculature and brain. Brain MRA: Non-contrast 3-D time of flight MR angiogram, with multiple maximum- intensity-projection (MIP) reformats performed. Neck MRA: Axial and sagittal TruFISP through the neck. Coronal dynamic MR angiogram during administration of contrast in the arterial and venous phases, with 3-dimenstional plxrecm-letwrmloi-ldoaddqcxs (MIP) reformats constructed from subtraction images. COMPARISON: [facility], , MR STROKE PROTOCOL, 07/09/2015, 14:40. FINDINGS: Image quality: Excellent. BRAIN: CSF spaces: Ventricles are normal in size and shape. Basal cisterns are patent. No extra-axial fluid collections. Brain: No intracranial bleeds or mass effects. Alexandre-white matter interface is normal. Diffusion weighted images show no acute ischemic insults. Brainstem appears normal. Normal intravascular flow voids are present. No abnormal intracranial enhancement. There are scattered T2/FLAIR signal hyperintense foci throughout the deep and periventricular white matter. Skull and face: Calvarial marrow signal is normal. Orbits appear normal. Sinuses: There is mild bilateral maxillary sinus mucosal thickening. The mastoid air cells are clear. The other paranasal sinuses are clear. BRAIN MR ANGIOGRAM: Anterior circulation: Intracranial internal carotid arteries are normal in size and enhancement. The flow within the paired anterior cerebral arteries is normal and symmetric. The flow within the middle cerebral arteries is normal and symmetric. The anterior communicating artery is seen. No stenoses, occlusions, or aneurysms. Posterior circulation: The visualized portions of the vertebral arteries demonstrate normal caliber, and join to form a normal appearing basilar artery. The flow within the posterior cerebral arteries is normal and symmetric. No stenoses, occlusions, or aneurysms. NECK MR ANGIOGRAM: Carotids: Great vessels demonstrate a conventional anatomy as they arise from the aortic arch. The origins of the common carotid arteries appear patent. The calibers and courses of both common carotid arteries are normal. The bifurcation regions appear normal bilaterally. The internal carotid arteries demonstrate normal course and caliber. Posterior circulation: The origins of the vertebral arteries appear patent. More superior portions of both vertebral arteries demonstrate normal course and caliber, and join to form a normal appearing basilar artery. Miscellaneous: Subclavian arteries appear patent. Pre-contrast images through the neck show no soft tissue abnormalities. IMPRESSION: BRAIN MRI: 1. No acute intracranial findings. Specifically, no findings to suggest acute or subacute infarct. 2. Chronic microvascular ischemic changes, as before. BRAIN MR ANGIOGRAM: 1. No stenosis, occlusion, or aneurysm. NECK MR ANGIOGRAM: 1. No stenosis, occlusion, or aneurysm. The estimate of stenosis included in the report of the imaging study was calculated using the NASCET method Dictated by: Hallie Campos M.D. on 04/13/2016 at 16:37 Approved by: Hallie Campos M.D. on 04/13/2016 at 16:47 Cardiac Echo Impressions Echocardiogram Report Name: YA RODRIGUEZ TStudy Date : 07/11/2015 Height: 75 in Hospital Exam Location: [facility] Weight: 220 lb Gender: Male BSA: 2.3 m2 : 1930 Age: 84 yrs BP: 164/84 mmHg Reason For Study: TIA, AVR Ordering Physician: Performed By: Vandana Ngo Referring Physician: Jaqueline Rice Interpretation Summary Sinus bradycardia. Normal LV size, mild concentric LVH. Normal wall motion and LV systolic function. EF is 60-65%. Severe LAE; moderate JEANNIE. Mild MAC Aortic valve is replaced with stented bioprosthesis. It is functioning normally. Compared to prior study performed 06/05/2015 no significant changes have occurred. Assessment & Plan Patient is an 84-year-old male who presents with altered mental status with fever secondary to influenza. Altered mental status with fever -Patient influenza a positive - Urinalysis is negative. -Check blood cultures positive for gram-positive rods -Continue empiric antibody therapy with Rocephin and Flagyl in the event patient may have aspirated and/or have bacterial pneumonia or bronchitis -There was no mention of sinusitis on the patient's CAT scan. 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 ferguson History of Rheumatic fever with Rheumatic heart disease -S/P bioprosthetic AVR 3 years ago at [facility] in [place] -Echo only showed mild to moderate increased wall thickness with normal systolic function, prosthetic valve appears well seated and functioning normally Paroxysmal Atrial fibrillation (paroxysmal identified May 2015) -on ASA, not warfarin (multiple falls, high risk for warfarin) -intolerant of amiodarone -Continue Metoprolol History of TIA June 2015 -TIA workup is currently negative Chronic problems: Chronic thrombocytopenia (~60-80) -monitor with CBCs GERD - GI prophylaxis with Protonix Obstructive sleep apnea and patient will not wear a mask BPH- may need to check postvoid residual with bladder scan Coronary artery disease- no evidence of chest pain or acute coronary syndrome Left ventricular hypertrophy with chronic diastolic congestive heart failure or CHF-check echo in a.m. Seizure history-check EEG Hypertension-monitor vitals Developmental delay patient stated school till the eighth grade and then stated elementary school for the next 4 years. Patient is unable to read or write, but is able to sign his name Allergic rhinitis Onychomycosis Difficulty with ambulation due to "deformed feet" Disposition: Patient seems to be responding more appropriately to questions at this time and seems back to baseline. The patient may have encephalopathy 2/2 a combination of influenza and a positive blood culture of gram-positive rods. We will continue the patient on his current antibiotic regimen as this does seem to be working. Dr. ferguson is still following the case and feels that the patient has an encephalopathy but the etiology is still undetermined but could be secondary to infection. Still waiting on the patient's seizure medication levels to ensure that the patientis being properly medicated. At this time the patient seems to have progressed well and will most likely be discharged back to his facility tomorrow with follow ups with his PCP and Dr. Ferguson. GI Prophylaxis: Proton Pump Inhibitor VTE Prophylaxis: Sub-Q Enoxaparin VTE Mechanical Devices: Venous Foot Pump Resuscitation Status: CPR: Attempt Resuscitation Roberta Sterling DO Apr 15, 2016 13:45
[2016-04-15 14:09] LABS: Lamotrigine (Lamictal) 3.9 ug/mL (2.0-20.0)
[2016-04-15 17:29] VITALS: BP 146/78; PULSE 81; RESP 19; O2SAT 92
[2016-04-15] MEDS: cefTRIAXone 2,000 mg/D5W 50 mL IV Minibag Plus IV SCH ×2 (18:11)
[2016-04-15 20:40] VITALS: BP 149/82; PULSE 61; RESP 19; O2SAT 93
[2016-04-16] MEDS: metroNIDAZOLE Inj 500 MG in IV Premix 1 EACH IV SCH ×3 (01:19→16:46)
--- NOTE | 2016-04-16 04:27 | NUR ---
uneventful night Patient denies pain/discomfort. eager to d/c tomorrow. vitals stable. Q2 hour turns implemented. IV antibiotics infusing. no needs at this time. will continue to monitor.
[2016-04-16 04:43] VITALS: BP 133/80; PULSE 108; RESP 18; O2SAT 92
[2016-04-16 06:22] LABS: Mean Corpuscular Hemoglobin 30.4 pg (27.0-35.0); Mean Corpuscular Volume 91.8 fL (81-100)
[2016-04-16 08:43] VITALS: BP 121/85; PULSE 133; RESP 19; O2SAT 95
[2016-04-16] MEDS: Fluconazole Inj 200 MG in IV Premix 1 EACH IV SCH (08:53)
[2016-04-16] MEDS: Pantoprazole 40 mg ER24 Tablet PO SCH (08:54)
[2016-04-16] MEDS: levETIRAcetam 500 mg Tablet PO SCH ×2 (08:54→20:51)
[2016-04-16] MEDS: lamoTRIgine 25 mg Tablet PO SCH (08:57)
[2016-04-16 12:43] VITALS: BP 132/77; PULSE 103; RESP 20; O2SAT 93
--- NOTE | 2016-04-16 14:52 | PCM.PNMED ---
Subjective Date of Service Apr 16, 2016 Subjective Patient was examined at bedside today. Patient's niece was present today. Patient seemed to be a little agitated when there were a lot of people in the room however once the temple people in the room he seemed back to his normal pleasant demeanor. The patient only complains of diarrhea at this time. Exam Vital Signs Vital Sign - Last Date Time Temp Pulse Resp B/P Pulse Ox O2 Delivery O2 Flow Rate FiO2 04/16/16 12:43 36.6 103 20 132/77 93 Room Air 04/12/16 23:36 2.00 Intake and Output 04/15/16 04/15/16 04/16/16 Cumulative From/Thru 15:00 23:00 07:00 04/12/16 12:12 - 04/16/16 04:52 Intake Total 2092 ml 0 ml 7747 ml Output Total 1200 ml 600 ml 4450 ml Balance 892 ml -600 ml 3297 ml Intake Oral 836 ml 0 ml 2122 ml IV Total 1256 ml 5625 ml Output Urine Total 1200 ml 600 ml 4450 ml # Bowel Movements 4 1 9 Exam Physical Exam: GEN: Patient was awake, alert, HEENT: PERRLA, EOMI, Neck soft supple, trachea midline, nomocephalic/atraumatic CV: +S1/S2, RRR, systolic murmurs auscultated Respiratory: CTAB, no wheezes, rales, rhonchi GI: +bowel sounds x4, soft, compressible, non TTP EXT: no c/c/e Neuro: CN II-XII grossly intact Psych: mood and affect were agitated Lab and Diagnostics Result Diagram: 04/16/16 0555 04/15/16 0609 Microbiology 2 sets of blood cultures are pending from the emergency room department X-Rays, CTs and MRIs PROCEDURE: CT BRAIN WITHOUT CONTRAST ([id number]) INDICATIONS: ams TECHNIQUE: Noncontrast 4.5 mm thick angled axial sections acquired from the foramen magnum to the vertex, with coronal reformats. COMPARISON: [facility], CT, CT BRAIN WO CON, 04/10/2016, 17:28. FINDINGS: Image quality: Excellent. CSF spaces: Basal cisterns are patent. No extra-axial fluid collections. The ventricles are symmetric in size and shape. Brain: No intracranial bleeds or masses. No change in low-density within the left marii, consistent with chronic infarction. There is cerebral volume loss for age, with resultant ventricular and sulcal prominence. There are periventricular and deep white matter chronic small vessel ischemic changes. There is intracranial internal carotid artery atherosclerosis. Skull and face: Calvarium and visualized facial bones appear intact, without suspicious lesions. Sinuses: Mild left maxillary sinus mucosal thickening. Left maxillary sinus retention cyst. Mild bilateral ethmoid air cell mucosal thickening. Visualized sinuses and mastoids are otherwise clear. IMPRESSION: 1. No acute process. 2. Volume loss and small vessel ischemic disease. 3. No change in hypodensity within the left marii, consistent with chronic infarct. Dictated by: Nguyen Esteban M.D. on 04/12/2016 at 13:14 Approved by: Nguyen Esteban M.D. on 04/12/2016 at 13:16 PROCEDURE: X-RAY CHEST ONE VIEW, PORTABLE ([id number]) INDICATIONS: ams, hypoxia TECHNIQUE: One view of the chest was acquired. COMPARISON: [facility], CR, XR CHEST 1VW (PORTABLE), 04/10/2016, 17: 27. FINDINGS: Surgical changes and devices: Median sternotomy. Lungs and pleura: No pleural effusions or pneumothorax. Lungs are clear. Mediastinum: Moderate hiatal hernia. Mediastinal contours otherwise appear normal. Heart size is normal. Bones and chest wall: No suspicious bony lesions. Overlying soft tissues appear unremarkable. IMPRESSION: 1. No acute process. 2. Hiatal hernia. Dictated by: Nguyen Esteban M.D. on 04/12/2016 at 13:28 Approved by: Nguyen Esteban M.D. on 04/12/2016 at 13:28 PROCEDURE: MRI STROKE PROTOCOL ([id number]) Pre- and post-contrast brain MRI, non-contrast brain MR angiogram, pre- and postcontrast neck MR angiogram INDICATIONS: Altered mental status/Possible CVA TECHNIQUE: Brain: Noncontrast axial T1 spin echo, axial T2 fast spin echo, sagittal and axial FLAIR, coronal T2 fast spin echo, axial gradient echo, axial diffusion and ADC through the brain. After the administration of contrast, axial 3D VIBE of the cranial vasculature and brain. Brain MRA: Non-contrast 3-D time of flight MR angiogram, with multiple maximum- intensity-projection (MIP) reformats performed. Neck MRA: Axial and sagittal TruFISP through the neck. Coronal dynamic MR angiogram during administration of contrast in the arterial and venous phases, with 3-dimenstional sbzoufz-jcgrzayts-kusqcjscjn (MIP) reformats constructed from subtraction images. COMPARISON: [facility], , MR STROKE PROTOCOL, 07/09/2015, 14:40. FINDINGS: Image quality: Excellent. BRAIN: CSF spaces: Ventricles are normal in size and shape. Basal cisterns are patent. No extra-axial fluid collections. Brain: No intracranial bleeds or mass effects. Alexandre-white matter interface is normal. Diffusion weighted images show no acute ischemic insults. Brainstem appears normal. Normal intravascular flow voids are present. No abnormal intracranial enhancement. There are scattered T2/FLAIR signal hyperintense foci throughout the deep and periventricular white matter. Skull and face: Calvarial marrow signal is normal. Orbits appear normal. Sinuses: There is mild bilateral maxillary sinus mucosal thickening. The mastoid air cells are clear. The other paranasal sinuses are clear. BRAIN MR ANGIOGRAM: Anterior circulation: Intracranial internal carotid arteries are normal in size and enhancement. The flow within the paired anterior cerebral arteries is normal and symmetric. The flow within the middle cerebral arteries is normal and symmetric. The anterior communicating artery is seen. No stenoses, occlusions, or aneurysms. Posterior circulation: The visualized portions of the vertebral arteries demonstrate normal caliber, and join to form a normal appearing basilar artery. The flow within the posterior cerebral arteries is normal and symmetric. No stenoses, occlusions, or aneurysms. NECK MR ANGIOGRAM: Carotids: Great vessels demonstrate a conventional anatomy as they arise from the aortic arch. The origins of the common carotid arteries appear patent. The calibers and courses of both common carotid arteries are normal. The bifurcation regions appear normal bilaterally. The internal carotid arteries demonstrate normal course and caliber. Posterior circulation: The origins of the vertebral arteries appear patent. More superior portions of both vertebral arteries demonstrate normal course and caliber, and join to form a normal appearing basilar artery. Miscellaneous: Subclavian arteries appear patent. Pre-contrast images through the neck show no soft tissue abnormalities. IMPRESSION: BRAIN MRI: 1. No acute intracranial findings. Specifically, no findings to suggest acute or subacute infarct. 2. Chronic microvascular ischemic changes, as before. BRAIN MR ANGIOGRAM: 1. No stenosis, occlusion, or aneurysm. NECK MR ANGIOGRAM: 1. No stenosis, occlusion, or aneurysm. The estimate of stenosis included in the report of the imaging study was calculated using the NASCET method Dictated by: Hallie Campos M.D. on 04/13/2016 at 16:37 Approved by: Hallie Campos M.D. on 04/13/2016 at 16:47 Cardiac Echo Impressions Echocardiogram Report Name: YA RODRIGUEZ TStudy Date : 07/11/2015 Height: 75 in Hospital Exam Location: [facility] Weight: 220 lb Gender: Male BSA: 2.3 m2 : 1930 Age: 84 yrs BP: 164/84 mmHg Reason For Study: TIA, AVR Ordering Physician: Performed By: Vandana Ngo Referring Physician: Jaqueline Rice Interpretation Summary Sinus bradycardia. Normal LV size, mild concentric LVH. Normal wall motion and LV systolic function. EF is 60-65%. Severe LAE; moderate JEANNIE. Mild MAC Aortic valve is replaced with stented bioprosthesis. It is functioning normally. Compared to prior study performed 06/05/2015 no significant changes have occurred. Assessment & Plan Patient is an 84-year-old male who presents with altered mental status with fever secondary to influenza. Diarrhea -Stool culture -Continue contact precautions Altered mental status with fever -Patient influenza a positive - Urinalysis is negative. -Check blood cultures positive for gram-positive rods -Continue empiric antibody therapy with Rocephin and Flagyl in the event patient may have aspirated and/or have bacterial pneumonia or bronchitis -There was no mention of sinusitis on the patient's CAT scan. 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 ferguson History of Rheumatic fever with Rheumatic heart disease -S/P bioprosthetic AVR 3 years ago at [facility] in [place] -Echo only showed mild to moderate increased wall thickness with normal systolic function, prosthetic valve appears well seated and functioning normally Paroxysmal Atrial fibrillation (paroxysmal identified May 2015) -on ASA, not warfarin (multiple falls, high risk for warfarin) -intolerant of amiodarone -Continue Metoprolol History of TIA June 2015 -TIA workup is currently negative Chronic problems: Chronic thrombocytopenia (~60-80) -monitor with CBCs GERD - GI prophylaxis with Protonix Obstructive sleep apnea and patient will not wear a mask BPH- may need to check postvoid residual with bladder scan Coronary artery disease- no evidence of chest pain or acute coronary syndrome Left ventricular hypertrophy with chronic diastolic congestive heart failure or CHF-check echo in a.m. Seizure history-check EEG Hypertension-monitor vitals Developmental delay patient stated school till the eighth grade and then stated elementary school for the next 4 years. Patient is unable to read or write, but is able to sign his name Allergic rhinitis Onychomycosis Difficulty with ambulation due to "deformed feet" Disposition: The patient seems to be back to his baseline mentation. At this time the patient's niece felt that the patient was not ready to go home today as he does have a new onset of this diarrhea. Stool cultures are being tested for. The niece had some concerns as the patient's facility does not usually respond quickly to request for assistance to the bathroom and that the patient may have disease process going on that should be treated. The patient's niece was also concern that the patient was not ambulating well. However physical therapy had signed off on the patient saying that he is at his baseline. Physical therapy will go back by today for reevaluation of the patient's baseline mobility. Patient should be ready for discharge tomorrow. GI Prophylaxis: Proton Pump Inhibitor VTE Prophylaxis: Sub-Q Enoxaparin VTE Mechanical Devices: Venous Foot Pump Resuscitation Status: CPR: Attempt Resuscitation Time spent Greater than 35 minutes Roberta Sterling DO Apr 16, 2016 14:52
--- NOTE | 2016-04-16 15:13 | NUR ---
Social Work: Readiness for d/c Data: Pt is on day 4 of hospitalization. EMR reviewed, pt discussed in rounds. MD states pt likely to d/c either today or tomorrow. states that pt has had loose stools and they will keep pt another night. Anticipate d/c tomorrow. DIGITAL MEDIA COORDINATOR will continue to follow. Assessment: Pt from [facility]. Plan: Pt will d/c to [facility], likely tomorrow. DIGITAL MEDIA COORDINATOR will continue to follow. DARLING Wooten
[2016-04-16 16:47] VITALS: BP 129/79; PULSE 60; RESP 18; O2SAT 95
[2016-04-16 20:31] VITALS: BP 163/89; PULSE 60; RESP 18; O2SAT 95
[2016-04-16] MEDS: Amoxicillin-Clav 875-125 mg Tablet PO SCH (20:51)
[2016-04-16] MEDS: 0.9% Sodium Chloride 1,000 ML IV SCH (22:39)
[2016-04-17] MEDS: metroNIDAZOLE Inj 500 MG in IV Premix 1 EACH IV SCH ×2 (00:12→08:15)
[2016-04-17 04:08] VITALS: BP 174/85; PULSE 52; RESP 20; O2SAT 95
[2016-04-17 06:21] LABS: Mean Corpuscular Hemoglobin 30.4 pg (27.0-35.0); Mean Corpuscular Volume 91.6 fL (81-100)
--- NOTE | 2016-04-17 06:33 | NUR ---
Uneventful Night Pt denies any pain/N/V/SOB/fever/chills, occasional nonproductive cough. Alert and orientedx3, void 375ml/12hr dark tea colored urine, PVR 196ml. NS 80ML/hr running, oral fluid encouraged. BP 174/85 this am, scheduled antihypertensive meds will be give this am. 1 small loose black stool overnight.
[2016-04-17] MEDS: 0.9% Sodium Chloride 1,000 ML IV SCH (08:15)
[2016-04-17] MEDS: Amoxicillin-Clav 875-125 mg Tablet PO SCH (08:18)
[2016-04-17] MEDS: levETIRAcetam 500 mg Tablet PO SCH (08:21)
[2016-04-17] MEDS: Pantoprazole 40 mg ER24 Tablet PO SCH (08:22)
[2016-04-17] MEDS: Fluconazole Inj 200 MG in IV Premix 1 EACH IV SCH (09:03)
[2016-04-17] MEDS: lamoTRIgine 25 mg Tablet PO SCH (09:04)
--- NOTE | 2016-04-17 09:10 | NUR ---
[facility] signed Message left with pt's POA. Lillie Wright MSW
--- NOTE | 2016-04-17 09:48 | NUR ---
FRANCK: Patient unable to sign for self and has DPOA, asked LOCKMAKER to follow up with DPOA via phone for FRANCK
--- NOTE | 2016-04-17 12:49 | PCM.DIMED ---
Discharge Instructions Date of Service Apr 17, 2016 Dates of Hospitalization Apr 12, 2016 at 15:23 Discharge Diagnosis Discharge Diagnosis Altered mental status secondary to influenza a infection and bacterial infection Parkinson's disease with a history of seizure disorder Paroxysmal A. fib Diarrhea negative for C. difficile Diet Other (soft diet) Activity Other (gradually returned to your normal daily activities) Call your provider Fever or Chills, Shortness of breath, Chest pain, Vomitting, Excessive diarrhea Patient Instructions Follow-up Provider: Alexandre Lees DO Follow-up with PCP in: 1 week (if an appointment has not already been made please call the office and make an appointment for follow-up) Provider: Claus Ferguson MD Follow-up in: 3 weeks (please follow-up with Dr. ferguson her regularly scheduled appointment) Roberta Sterling DO Apr 17, 2016 12:49
[2016-04-17] MEDS ORDERED: AMOX-366 PO (12:51)
[2016-04-17] MEDS ORDERED: METR500T PO (12:51)
[2016-04-17 13:51] VITALS: BP 167/90; PULSE 61; RESP 20; O2SAT 96
--- NOTE | 2016-04-17 14:47 | PCM.DC.MED ---
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 fib Diarrhea negative for C. difficile Procedures XRay, CTs & MRIs PROCEDURE: CT BRAIN WITHOUT CONTRAST ([id number]) INDICATIONS: ams TECHNIQUE: Noncontrast 4.5 mm thick angled axial sections acquired from the foramen magnum to the vertex, with coronal reformats. COMPARISON: [facility], CT, CT BRAIN WO CON, 04/10/2016, 17:28. FINDINGS: Image quality: Excellent. CSF spaces: Basal cisterns are patent. No extra-axial fluid collections. The ventricles are symmetric in size and shape. Brain: No intracranial bleeds or masses. No change in low-density within the left marii, consistent with chronic infarction. There is cerebral volume loss for age, with resultant ventricular and sulcal prominence. There are periventricular and deep white matter chronic small vessel ischemic changes. There is intracranial internal carotid artery atherosclerosis. Skull and face: Calvarium and visualized facial bones appear intact, without suspicious lesions. Sinuses: Mild left maxillary sinus mucosal thickening. Left maxillary sinus retention cyst. Mild bilateral ethmoid air cell mucosal thickening. Visualized sinuses and mastoids are otherwise clear. IMPRESSION: 1. No acute process. 2. Volume loss and small vessel ischemic disease. 3. No change in hypodensity within the left marii, consistent with chronic infarct. Dictated by: Nguyen Esteban M.D. on 04/12/2016 at 13:14 Approved by: Nguyen Esteban M.D. on 04/12/2016 at 13:16 PROCEDURE: X-RAY CHEST ONE VIEW, PORTABLE ([id number]) INDICATIONS: ams, hypoxia TECHNIQUE: One view of the chest was acquired. COMPARISON: [facility], CR, XR CHEST 1VW (PORTABLE), 04/10/2016, 17: 27. FINDINGS: Surgical changes and devices: Median sternotomy. Lungs and pleura: No pleural effusions or pneumothorax. Lungs are clear. Mediastinum: Moderate hiatal hernia. Mediastinal contours otherwise appear normal. Heart size is normal. Bones and chest wall: No suspicious bony lesions. Overlying soft tissues appear unremarkable. IMPRESSION: 1. No acute process. 2. Hiatal hernia. Dictated by: Nguyen Esteban M.D. on 04/12/2016 at 13:28 Approved by: Nguyen Esteban M.D. on 04/12/2016 at 13:28 PROCEDURE: MRI STROKE PROTOCOL ([id number]) Pre- and post-contrast brain MRI, non-contrast brain MR angiogram, pre- and postcontrast neck MR angiogram INDICATIONS: Altered mental status/Possible CVA TECHNIQUE: Brain: Noncontrast axial T1 spin echo, axial T2 fast spin echo, sagittal and axial FLAIR, coronal T2 fast spin echo, axial gradient echo, axial diffusion and ADC through the brain. After the administration of contrast, axial 3D VIBE of the cranial vasculature and brain. Brain MRA: Non-contrast 3-D time of flight MR angiogram, with multiple maximum- intensity-projection (MIP) reformats performed. Neck MRA: Axial and sagittal TruFISP through the neck. Coronal dynamic MR angiogram during administration of contrast in the arterial and venous phases, with 3-dimenstional rpgvmqb-ejizlzfin-qadksjbjuj (MIP) reformats constructed from subtraction images. COMPARISON: [facility], , MR STROKE PROTOCOL, 07/09/2015, 14:40. FINDINGS: Image quality: Excellent. BRAIN: CSF spaces: Ventricles are normal in size and shape. Basal cisterns are patent. No extra-axial fluid collections. Brain: No intracranial bleeds or mass effects. Alexandre-white matter interface is normal. Diffusion weighted images show no acute ischemic insults. Brainstem appears normal. Normal intravascular flow voids are present. No abnormal intracranial enhancement. There are scattered T2/FLAIR signal hyperintense foci throughout the deep and periventricular white matter. Skull and face: Calvarial marrow signal is normal. Orbits appear normal. Sinuses: There is mild bilateral maxillary sinus mucosal thickening. The mastoid air cells are clear. The other paranasal sinuses are clear. BRAIN MR ANGIOGRAM: Anterior circulation: Intracranial internal carotid arteries are normal in size and enhancement. The flow within the paired anterior cerebral arteries is normal and symmetric. The flow within the middle cerebral arteries is normal and symmetric. The anterior communicating artery is seen. No stenoses, occlusions, or aneurysms. Posterior circulation: The visualized portions of the vertebral arteries demonstrate normal caliber, and join to form a normal appearing basilar artery. The flow within the posterior cerebral arteries is normal and symmetric. No stenoses, occlusions, or aneurysms. NECK MR ANGIOGRAM: Carotids: Great vessels demonstrate a conventional anatomy as they arise from the aortic arch. The origins of the common carotid arteries appear patent. The calibers and courses of both common carotid arteries are normal. The bifurcation regions appear normal bilaterally. The internal carotid arteries demonstrate normal course and caliber. Posterior circulation: The origins of the vertebral arteries appear patent. More superior portions of both vertebral arteries demonstrate normal course and caliber, and join to form a normal appearing basilar artery. Miscellaneous: Subclavian arteries appear patent. Pre-contrast images through the neck show no soft tissue abnormalities. IMPRESSION: BRAIN MRI: 1. No acute intracranial findings. Specifically, no findings to suggest acute or subacute infarct. 2. Chronic microvascular ischemic changes, as before. BRAIN MR ANGIOGRAM: 1. No stenosis, occlusion, or aneurysm. NECK MR ANGIOGRAM: 1. No stenosis, occlusion, or aneurysm. The estimate of stenosis included in the report of the imaging study was calculated using the NASCET method Dictated by: Hallie Campos M.D. on 04/13/2016 at 16:37 Approved by: Hallie Campos M.D. on 04/13/2016 at 16:47 Cardiac Echo Impression Echocardiogram Report Name: YA RODRIGUEZ TStudy Date : 07/11/2015 Height: 75 in Hospital Exam Location: [facility] Weight: 220 lb Gender: Male BSA: 2.3 m2 : 1930 Age: 84 yrs BP: 164/84 mmHg Reason For Study: TIA, AVR Ordering Physician: Performed By: Vandana Ngo Referring Physician: Jaqueline Rice Interpretation Summary Sinus bradycardia. Normal LV size, mild concentric LVH. Normal wall motion and LV systolic function. EF is 60-65%. Severe LAE; moderate JEANNIE. Mild MAC Aortic valve is replaced with stented bioprosthesis. It is functioning normally. Compared to prior study performed 06/05/2015 no significant changes have occurred. 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 This resulted in him having an aortic valve replacement 3 years ago. Patient did well after the surgery and returned to the [facility]. The patient did well at the [facility] until June 2015 when he developed TIA-like symptoms. Patient was found to have cholecystitis and had a cholecystectomy and when ready to be discharged the [facility] refused to take him back to [facility] medical problems. Patient was then discharged to the [facility]. Patient did well at [facility] until he fell and hit his head on 04/10/2015. Patient reportedly had a fever of 101. Patient was evaluated in the emergency room at [facility] and the had no significant findings on CAT scan and had no significant findings on chest x-ray and was discharged home. The patient did well for a little while since Wednesday and then started developing features of disorientation again. This morning he was found slumped over in his wheelchair and had altered mental status he did not recognize people he that he normally recognizes and was not his normal mental self. Therefore patient was brought to [facility] emergency room for further evaluation and treatment. Patient was evaluated in the emergency room Byron Aguero M.D. who felt the patient needed admission. Patient was admitted to the hospital service for further evaluation and treatment. Hospital Course Patient is an 84-year-old male who presents with altered mental status with fever secondary to influenza. Patient presented to the emergency room for altered mental status and a fever. There are also some concerns that the patient may have had a seizure during this time as well causing the altered mental status. Patient on admission was found to be influenza A positive, urine analysis was negative, however blood cultures were positive for deep steroid bacteria patient was started on both Rocephin and Flagyl in the event that he could potentially have a bacterial pneumonia or bronchitis. An extensive neurologic workup was performed the patient had an EEG which was found to be abnormal. The patient's lamotrigine level was 3.9 and Keppra was 19 were both found to be in the therapeutic range. Patient also had an MRI of the brain in order to rule out any possible stroke and this was found to be negative. The patient did develop some diarrhea which seems to have resolved. However C. difficile cultures were negative. Patient is now back to his baseline mobility as assessed by PT. Patient should return back to his detention facility. Patient will be sent home to finish out a course of antibiotics. Patient should follow-up with Dr. ferguson his normal regularly scheduled appointment as well as his primary care provider within one week. Exam Vital Signs (Last) Date Time Temp Pulse Resp B/P Pulse Ox O2 Delivery O2 Flow Rate FiO2 04/17/16 13:51 36.8 61 20 167/90 96 Room Air 04/12/16 23:36 2.00 Exam GEN: Patient was awake, alert, HEENT: PERRLA, EOMI, Neck soft supple, trachea midline, laceration over right eye sutures in place. The area was cleaned dry no signs of erythema or edema CV: +S1/S2, RRR, systolic murmurs auscultated Respiratory: CTAB, no wheezes, rales, rhonchi GI: +bowel sounds x4, soft, compressible, non TTP EXT: no c/c/e Neuro: CN II-XII grossly intact Psych: mood and affect were appropriate Test 04/12/16 12:00 04/12/16 12:45 04/13/16 05:45 04/15/16 06:09 Urine Color Yellow (YELLOW) Urine Appearance Clear (CLEAR,HAZY) Urine pH 5.0 (5.0-8.0) Urine Specific [place] 1.025 (1.003-1.035) Urine Protein Tracemg/dL (NEG,TRACE) Urine Glucose (UA) Negativemg/dL (NEGATIVE) Urine Ketones Negativemg/dL (NEGATIVE) Urine Occult Blood Negative (NEGATIVE) Urine Nitrite Negative (NEGATIVE) Urine Bilirubin Negative (NEGATIVE) Urine Urobilinogen Normalmg/dL (NORMAL) Urine Leukocyte Esterase Negative (NEGATIVE) Urine RBC 0-2/hpf (0-2) Urine WBC 0-5/hpf (0-5) Urine Epithelial Cells Few/hpf (NONE-MOD) Urine Crystals None seen (NONE SEEN) Urine Bacteria Few/hpf (NONE-FEW) Urine Hyaline Casts None/lpf (NONE) Urine Granular Casts Occasional (NONE SEEN) Urine Waxy Casts None seen (NONE SEEN) Urine Red Blood Cell Casts None seen (NONE SEEN) Urine White Blood Cell Casts None seen (NONE SEEN) Urine Mucus None seen (None Seen) Urine Trichomonas None seen (NONE SEEN) Urine Yeast None (NONE SEEN) Urinalysis Comment None Urine Culture Reflexed Not indicated Hold Urine Received (Received) Neutrophils (%) (Auto) 76.9% (40-74) Lymphocytes (%) (Auto) 10.3% (14-46) Monocytes (%) (Auto) 12.8% (4-12) Eosinophils (%) (Auto) 0% (0-5) Basophils (%) (Auto) 0% (0-3) Lactic Acid Level 1.6mmol/L (0.4-2.0) Magnesium Level 2.0mg/dL (1.6-2.6) Ammonia 38ug/dL (18-53) Troponin T < 0.010ug/L (0.0-0.011) Pro-B-Type Natriuretic Peptide 695.8pg/mL (0-486) Salicylates Level < 3.0ug/mL (30-250) Alcohol, Quantitative < 10mg/dL (0-10) Lamotrigine (Lamictal) Level 3.9ug/mL (2.0-20.0) Levetiracetam (Keppra) Level 19.0ug/mL (10.0-40.0) Sodium Level 144mEq/L (134-144) Potassium Level 3.7mEq/L (3.5-5.2) Chloride Level 107mEq/L (97-108) Carbon Dioxide Level 25mmol/L (18-29) Blood Urea Nitrogen 13mg/dL (8-27) Creatinine 0.87mg/dL (0.76-1.27) Estimat Glomerular Filtration Rate 89mL/min (>59) Glucose Level 135mg/dL (60-99) Calcium Level 8.1mg/dL (8.5-10.1) Total Bilirubin 0.3mg/dL (0.0-1.2) Aspartate Amino Transf (AST/SGOT) 35U/L (0-50) Alanine Aminotransferase (ALT/SGPT) 12U/L (0-44) Alkaline Phosphatase 76U/L (25-160) Total Protein 5.4g/dL (6.4-8.4) Albumin 3.1g/dL (3.4-5.0) Triglycerides Level 77mg/dL (0-149) Cholesterol Level 106mg/dL (100-199) LDL Cholesterol, Calculated 61.600mg/dL (0-99) VLDL Cholesterol 15.400mg/dL HDL Cholesterol 29mg/dL (>39) Cholesterol/HDL Ratio 3.66 (0.0-4.4) Test 04/17/16 05:40 White Blood Count 3.1th/mm3 (3.8-10.1) Red Blood Count 3.82mil/mm3 (4.40-5.80) Hemoglobin 11.6g/dL (13.8-17.2) Hematocrit 35.0% (41.0-50.0) Mean Corpuscular Volume 91.6fL (81-100) Mean Corpuscular Hemoglobin 30.4pg (27.0-35.0) Mean Corpuscular Hemoglobin Concent 33.1% (32.0-37.0) Red Cell Distribution Width 12.4% (12.3-15.4) Platelet Count 80bil/L (150-400) Microbiology Results 2 sets of blood cultures are pending from the emergency room department Discharge Medications Discharge Medications Amoxicillin/Clav K 875-125 mg (Augmentin 875-125 mg) 1 Each Tablet 1 TABLET PO BID Prescribed by: ZINA MURCIA DO Aspirin Chew (Aspirin Chew) 81 Mg Tab.chew 162 MG PO DAILY (Reported) Carbidopa/Levodopa ODT 25-100 mg (Carbidopa/Levodopa ODT 25-100 mg) 1 Each Tab.rapdis 1 EACH PO TID (Reported) Cholecalciferol (Vitamin D3) (Vitamin D3) 2,000 Unit Tablet 2,000 UNIT PO DAILY (Reported) Clotrimazole 1% (Clotrimazole 1%) 30 Ml Solution 30 ML TOPICAL BID Prescribed by: BYRON PARISI MD Docusate Sodium (Colace) 100 Mg Capsule 100 MG PO DAILY (Reported) Ferrous Sulfate (Iron) 325 Mg Tablet 325 MG PO DAILY (Reported) Furosemide (Furosemide) 20 Mg Tab 10 MG PO DAILY (Reported) Lamotrigine (Lamictal) 25 Mg Tablet 25 MG PO DAILY Prescribed by: BRENDA THOMAS MD Levetiracetam (Keppra) 500 Mg Tablet 500 MG PO BID Prescribed by: SRAVANI ROLLINS MD Lisinopril (Lisinopril) 5 Mg Tablet 5 MG PO DAILY (Reported) Loratadine (Claritin) 10 Mg Capsule 10 MG PO DAILY (Reported) Magnesium Oxide (Mag-Oxide) 400 Mg Tablet 400 MG PO DAILY Prescribed by: TOMAS FERRARI MD Metoprolol Tartrate (Metoprolol Tartrate) 25 Mg Tablet 12.5 MG PO BID Prescribed by: BRENDA THOMAS MD Metronidazole (Flagyl) 500 Mg Tablet 500 MG PO Q8H Prescribed by: ZINA MURCIA DO Multivitamin with Minerals (Myvitalife) 1 Each Capsule 1 EACH PO DAILY (Reported ) Pantoprazole DR (Protonix) 40 Mg Tablet.dr 40 MG PO DAILY (Reported) Ubidecarenone (Coenzyme Q10) 100 Mg Capsule 100 MG PO DAILY (Reported) Ubidecarenone (Co Q-10) 30 Mg Capsule 30 MG PO DAILY (Reported) Wheat Dextrin (Benefiber) 144 Gm Powder 1 TBS PO DAILY (Reported) in juice. As needed Acetaminophen (Acetaminophen) 325 Mg Tablet 325 MG PO HS PRN PRN For Fever ( Reported) Miscellaneous Medications Ca Carb/D3/Mag Ox/[employer]/[place]/Zn (Caltrate+D3 Plus Mineral Minis) 300 Mg-800 Tablet 1 EACH PO (Reported) Loratadine (Loratadine) 5 Mg/5 Ml (5 Ml) Solution 5 MG PO (Reported) Psyllium Husk (Metamucil) 3.4 Gram/5.4 Gram Powder 660 GM PO (Reported) Followup Plan Discharge Diet: Other (soft diet) Discharge Activity: Other (gradually returned to your normal daily activities) Follow-up Provider: Alexandre Lees DO Follow-up with PCP in: 1 week (if an appointment has not already been made please call the office and make an appointment for follow-up) Provider: Claus eFrguson MD Follow-up in: 3 weeks (please follow-up with Dr. ferguson her regularly scheduled appointment) copies to: Alexandre Lees Precious L DO Apr 17, 2016 14:29
--- NOTE | 2016-04-17 15:08 | NUR ---
Social Work: Discharge Data: Pt is on day 5 of hospitalization. EMR reviewed. Pt's d/c orders are in. GROUNDS [employer]ER called [facility] to notify of pt's d/c, they set up transportation for 3:30pm. GROUN[employer]ER notified RN, pt, and UA. No further d/c planning needs anticipated at this time. GR[employer]ER will continue to follow if needs arise. Assessment: Pt from [facility]. Plan: Pt will d/c back to [facility] today at 3:30pm. GROUN[employer]ER notified RN, pt, and UA. No further d/c planning needs anticipated at this time. GR[employer]ER will continue to follow if needs arise. DARLING Wooten
--- NOTE | 2016-04-17 15:50 | NUR ---
Transfer Pt discharged to [facility] at this time. All belongings gathered and returned to pt. No complains of increased pain, SOB or chest discomfrt. IV D/Cd intact. pt taken from [facility] in wheelchair, by cdl driver for [facility]. Addendum: 04/17/16 at 1556 by LYNDSEY HILL RN Report called to Melanie
== END 2016-04-17 15:45 | DRG 193 ==
LOC: SED 11:47 → MPC 15:23
PROVIDERS: ADMIT Internal Medicine; ATTEND Internal Medicine Infectious Disease
PROC: 4A00X4Z Measurement of Central Nervous Electrical Activity, External Approach (ICD-10-PCS; principal; 2016-04-13)
DX: J10.1 Influenza due to other identified influenza virus with other respiratory manifestations (principal); G93.40 Encephalopathy, unspecified; I50.32 Chronic diastolic (congestive) heart failure; R78.81 Bacteremia; R41.82 Altered mental status, unspecified; I48.0 Paroxysmal atrial fibrillation; I25.10 Atherosclerotic heart disease of native coronary artery without angina pectoris; R29.6 Repeated falls; Z91.81 History of falling; K21.9 Gastro-esophageal reflux disease without esophagitis; G20 Parkinson's disease; F17.210 Nicotine dependence, cigarettes, uncomplicated; Z79.82 Long term (current) use of aspirin; G40.909 Epilepsy, unspecified, not intractable, without status epilepticus; Z95.2 Presence of prosthetic heart valve; I10 Essential (primary) hypertension; Z86.73 Personal history of transient ischemic attack (TIA), and cerebral infarction without residual deficits; F81.89 Other developmental disorders of scholastic skills; N40.0 Benign prostatic hyperplasia without lower urinary tract symptoms; B97.89 Other viral agents as the cause of diseases classified elsewhere

== ENCOUNTER 2016-12-11 16:43 | Inpatient (IN) | payer MEDICARE, MEDICAID ==
[~2016-12-11] VITALS: Ht 190.5 cm; Wt 81.0 kg
[~2016-12-11 16:43] MED LIST changes: +ACET325T51 PO; +AMOX-366 PO; +CA C1TAB92 PO; -CALC-756 PO; -FERR325T39 PO; +FERR325T40 PO; +LORA5SOL82 PO; +METR500T PO; +PSYL660P17 PO; +UBID30CA8 PO
[2016-12-11 16:50] VITALS: BP 112/65; PULSE 66; RESP 18; O2SAT 94
[2016-12-11 17:24] LABS: BASOPHILS % (AUTO) 0.2 % (0-3); EOSINOPHILS % (AUTO) 1.5 % (0-5); MONOCYTES % (AUTO) 9.8 % (4-12); Mean Corpuscular Hemoglobin 30.8 pg (27.0-35.0); Mean Corpuscular Volume 91.7 fL (81-100); NEUTROPHILS % (AUTO) 65.8 % (40-74); Platelet Count 100 bil/L (150-400)
--- NOTE | 2016-12-11 17:46 | DRSVH ---
PROCEDURE: X-RAY FINGERS, TWO VIEWS RIGHT INDICATIONS: deformity TECHNIQUE: AP hand, 2 views of the right finger(s) acquired. COMPARISON: None. FINDINGS: Bones: Dislocation of the PIP joint of the middle finger. There is a 2 mm osseous density projecting in this area however no definite donor site is seen. This could represent a small fracture fragment. 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 Soft tissues: No suspicious soft tissue calcifications. IMPRESSION: Dislocation of the PIP joint of the right middle finger. Small osseous density in this region may represent a small fracture fragment however no definite dono r site is seen. Recommend clinical correlation Dictated by: Fabian Joiner M.D. on 12/11/2016 at 17:42 Approved by: Fabian Joiner M.D. on 12/11/2016 at 17:44
--- NOTE | 2016-12-11 18:14 | DRSVH ---
PROCEDURE: CT BRAIN WITHOUT CONTRAST ([id number]) INDICATIONS: fall TECHNIQUE: Noncontrast 4.5 mm thick angled axial sections acquired from the foramen magnum to the vertex, with c oronal reformats. COMPARISON: [facility], CT, CT BRAIN WO CON, 04/12/2016, 12:52. FINDINGS: Image quality: Excellent. CSF spaces: Basal cisterns are patent. No extra-axial fluid collections. The ventricles are symmet gertrude in size and shape. Brain: No intracranial bleeds or masses. There is cerebral volume loss for age, with resultant vent ricular and sulcal prominence. There are periventricular and deep white matter chronic small vessel ischemic changes. There is intracranial internal carotid artery atherosclerosis. Skull and face: Calvarium and visualized facial bones appear intact, without suspicious lesions. Mi ld bifrontal scalp swelling Sinuses: Small mucous retention cyst or polyp in the left maxillary antrum. Mastoids are clear. IMPRESSION: No acute intracranial abnormality. Mild bifrontal scalp swelling. Dictated by: Fabian Joiner M.D. on 12/11/2016 at 18:10 Approved by: Fabian Joiner M.D. on 12/11/2016 at 18:13
--- NOTE | 2016-12-11 18:19 | DRSVH ---
PROCEDURE: CT CERVICAL SPINE WITHOUT CONTRAST ([id number]) INDICATIONS: fall TECHNIQUE: Noncontrast 3 mm thick sections acquired from the skull base to the T4 level. Sagittal and coronal r eformats were then constructed. For radiation dose reduction, the following was used: automated exp osure control, adjustment of mA and/or kV according to patient size. COMPARISON: [facility], CR, CHEST 2VW, 07/24/2013, 9:21. [facility], CR, XR CHEST 2VW, 06/04/2015, 17:00. [facility], CT, CT BRAIN WO CON, 12/11/2016, 17:39. FINDINGS: Image quality: Excellent. Bones: No fractures or dislocations. Visualized superior ribs are intact. Mild endplate spurring an d anterior osteophyte formation in particular at C5-C6. Multilevel cervical facet disease. Possible d ebris within the external auditory canals bilaterally. Soft tissues: Prevertebral soft tissues are normal in thickness. No paravertebral hematomas. No ap ical pneumothoraces. IMPRESSION: Age-indeterminate mild T3 and T4 compression fractures. Recommend clinical correlation No cervical spine fracture identified. Degenerative changes as above. Possible debris within the external auditory canal bilaterally although technically nonspecific and r ecommend correlation with visual inspection Dictated by: Fabian Joiner M.D. on 12/11/2016 at 18:13 Approved by: Fabian Joiner M.D. on 12/11/2016 at 18:17
[2016-12-11 18:47] LABS: APPEARANCE,URINE CLOUDY (CLEAR,HAZY); COLOR,URINE YELLOW (YELLOW); OCCULT BLOOD,URINE SMALL (NEGATIVE); UROBILINOGEN,URINE NORMAL (NORMAL)
--- NOTE | 2016-12-11 19:17 | ED.REPORT ---
HPI-General Illness Date of Service Dec 11, 2016 ED Provider: Mario Jasso MD An 86 year old male with a history of Parkinson's disease, seizure disorder, paroxysmal atrial fibrillation (not anticoagulated), chronic thromobcytopenia, CAD, bioprosthetic AVR, CHF, and recurrent GLF's presents to the ED via EMS in a C-collar following an unwitnessed GLF that occurred just prior to arrival. This is reportedly the patient's 3rd GLF today according to the patient's niece. The patient has recurrent UTI's that have previously presented with similar symptoms and unsteadiness. He denies any LOC but may have hit his head during the fall. EMS noted right 3rd finger deformity. Per nursing note, the patient recently had a change in seizure medication and has become increasingly unsteady since onset. Patient denies any recent associated fever, chills, dysuria, abdominal pain, neck pain, or visual disturbances. History is limited due to patient mental status. He is accompanied to the ED by his niece who acts as the patient's DPOA. Nursing Notes Stated Complaint: FALLING Chief Complaint: Multiple Trauma/Fall Nursing Notes Reviewed: Yes Allergies: Coded Allergies: levofloxacin (Verified Allergy, Intermediate, vomiting, rash, 04/12/16) amiodarone (Verified Allergy, Unknown, confusion, 04/12/16) Scheduled Aspirin Chew (Aspirin Chew) 81 Mg Tab.chew 162 MG PO QAM Calcium Carbonate/Vitamin D3 (Calcium 600 + Vit D3 400 Tab) 600 Mg-400 Tablet 1 EACH PO QAM Carbidopa/Levodopa ODT 25-100 mg (Carbidopa/Levodopa ODT 25-100 mg) 1 Each Tab.rapdis 2 EACH PO TID Cholecalciferol (Vitamin D3) (Vitamin D3) 2,000 Unit Tablet 2,000 UNIT PO QAM Docusate Sodium (Colace) 100 Mg Capsule 100 MG PO QAM Ferrous Sulfate (Iron) 325 Mg Tablet 325 MG PO QAM Furosemide (Furosemide) 20 Mg Tab 10 MG PO QAM Lamotrigine (Lamotrigine) 100 Mg Tablet 200 MG PO BID Levetiracetam (Keppra) 500 Mg Tablet 500 MG PO BID Lisinopril (Lisinopril) 5 Mg Tablet 5 MG PO QAM Loratadine (Loratadine) 10 Mg Capsule 10 MG PO HS Magnesium Oxide (Mag-Oxide) 400 Mg Tablet 400 MG PO DAILY Metoprolol Tartrate (Metoprolol Tartrate) 25 Mg Tablet 12.5 MG PO BID Multivitamin with Minerals (Myvitalife) 1 Each Capsule 1 EACH PO QAM Omeprazole (Omeprazole) 20 Mg Tablet.dr 20 MG PO QAM Polyethylene Glycol 3350 (Miralax) 17 Gm Powd.pack 17 GM PO QAM Psyllium Husk (Psyllium Seed) 480 Gm Powder 1 TBS PO QAM Ubidecarenone (Coenzyme Q10) 30 Mg Capsule 90 MG PO QAM Scheduled PRN Acetaminophen (Acetaminophen) 325 Mg Tablet 650 MG PO Q4H PRN PRN For Fever Bisacodyl (Dulcolax Rectal) 10 Mg Supp.rect 10 MG RC DAILY PRN PRN For Constipation Clotrimazole (Athlete's Foot) 1 % Cream..g. 1 APPLIC TP BID PRN PRN RASH Loperamide (Loperamide) 2 Mg Tablet 2 MG PO Q4H PRN PRN For Diarrhea or Loose Stool Magnesium Hydroxide (Milk of Magnesia) 400 Mg/5 Ml Oral.susp 30 ML PO DAILY PRN PRN For Constipation Na Phos,M-B/Na Phos,Di-Ba (Fleet Enema) 133 Ml Enema 133 ML RC DAILY PRN PRN For Constipation General Time Seen by MD: 17:12 Chief Complaint Other (GLF) Hx Obtained From: Patient, Other family... (Niece), EMS Unable to Obtain Hx: Mental status (Limited by) Arrived By: Ambulance Sudden in Onset?: No Onset Occurred: Just prior to arrival Symptom Duration: Since onset Caused by: Accidental Pertinent Negative: Pt denies other symptoms Recent Healthcare: No recent hospitalization, Recent doctor visit Similar Sx Previous: Yes Past Medical History Past Medical History Parkinson's disease S/P bioprosthetic AVR Atrial fibrillation (paroxysmal identified May 2015) - on ASA, not warfarin (multiple falls, high risk for warfarin) Chronic thrombocytopenia (~60-80) GERD sleep apnea BPH Coronary artery disease CHF Seizures Developmental delay Past Surgical History Aortic valve replacement: bioprosthetic cancer removal Cholecystectomy May 2015 Family History noncontributory Smoking History Current Every Day Smoker Social History Lives at [facility] ([place]) Full code per POLST from 07/09/15 Alcohol Use: Denies alcohol use Drug Use: Denies drug use Other Social History: Good social support, Lives in jail, Local resident Ambulatory Status Independent Review of Systems Unable to Obtain ROS Mental status Physical Exam Nursing note and vitals reviewed. Constitutional: Well-developed, well-nourished elderly male. Not diaphoretic. Head: Normocephalic and atraumatic. Mouth/Throat: Oropharynx is clear and moist. No oropharyngeal exudate. Eyes: EOM are normal. Pupils are equal, round, and reactive to light. Neck: Immobilized in C-collar (removed following CT clearance). Supple, no tracheal deviation. No C-spine tenderness. Back: No T/L spine tenderness. Cardiovascular: Normal rate, regular rhythm. Equal and intact distal pulses throughout. Pulmonary/Chest: Effort normal and breath sounds normal. No respiratory distress. Abdominal: Soft. No distension. There is no tenderness, rebound, or guarding. Hand/Wrist: Obvious deformity to the right 3rd PIP joint. CMS intact distal and proximal to the injured area. Otherwise, MSK exam w/ range of motion grossly intact, moving all extremities. Neurological: Oriented x 2, but slow to respond. Occasional slurring of words. Strength and sensation grossly intact and equal to bilateral upper and lower extremities. Vital Signs Vital Signs Date Time Temp Pulse Resp B/P Pulse Ox O2 Delivery O2 Flow Rate FiO2 12/11/16 16:50 36.8 66 18 112/65 94 Initial VS: Reviewed Interpretation & Diagnostics Lab Results Interpretation Result Diagram: 12/11/16 1710 12/11/16 1710 Test 12/11/16 17:10 12/11/16 18:16 White Blood Count 5.3th/mm3 (3.8-10.1) Red Blood Count 4.12mil/mm3 (4.40-5.80) Hemoglobin 12.7g/dL (13.8-17.2) Hematocrit 37.8% (41.0-50.0) Mean Corpuscular Volume 91.7fL (81-100) Mean Corpuscular Hemoglobin 30.8pg (27.0-35.0) Mean Corpuscular Hemoglobin Concent 33.6% (32.0-37.0) Red Cell Distribution Width 12.4% (12.3-15.4) Platelet Count 100bil/L (150-400) Neutrophils (%) (Auto) 65.8% (40-74) Lymphocytes (%) (Auto) 22.5% (14-46) Monocytes (%) (Auto) 9.8% (4-12) Eosinophils (%) (Auto) 1.5% (0-5) Basophils (%) (Auto) 0.2% (0-3) Sodium Level 139mEq/L (134-144) Potassium Level 4.7mEq/L (3.5-5.2) Chloride Level 99mEq/L (97-108) Carbon Dioxide Level 27mmol/L (18-29) Blood Urea Nitrogen 31mg/dL (8-27) Creatinine 1.44mg/dL (0.76-1.27) Estimat Glomerular Filtration Rate 50mL/min (>59) Glucose Level 150mg/dL (60-99) Calcium Level 9.3mg/dL (8.5-10.1) Total Bilirubin 0.5mg/dL (0.0-1.2) Aspartate Amino Transf (AST/SGOT) 29U/L (0-50) Alanine Aminotransferase (ALT/SGPT) 9U/L (0-44) Alkaline Phosphatase 120U/L (25-160) Troponin T 0.010ug/L (0.0-0.011) Total Protein 7.5g/dL (6.4-8.4) Albumin 3.9g/dL (3.4-5.0) Urine Color Yellow (YELLOW) Urine Appearance Cloudy (CLEAR,HAZY) Urine pH 6.0 (5.0-8.0) Urine Specific Bond 1.020 (1.003-1.035) Urine Protein 30mg/dL (NEG,TRACE) Urine Glucose (UA) Negativemg/dL (NEGATIVE) Urine Ketones Negativemg/dL (NEGATIVE) Urine Occult Blood Small (NEGATIVE) Urine Nitrite Negative (NEGATIVE) Urine Bilirubin Negative (NEGATIVE) Urine Urobilinogen Normalmg/dL (NORMAL) Urine Leukocyte Esterase Large (NEGATIVE) Urine RBC 3-10/hpf (0-2) Urine WBC Packed/hpf (0-5) Urine Epithelial Cells Occasional/hpf (NONE-MOD) Urine Crystals None seen (NONE SEEN) Urine Bacteria Moderate/hpf (NONE-FEW) Urine Hyaline Casts None/lpf (NONE) Urine Granular Casts None seen (NONE SEEN) Urine Waxy Casts None seen (NONE SEEN) Urine Red Blood Cell Casts None seen (NONE SEEN) Urine White Blood Cell Casts None seen (NONE SEEN) Urine Mucus None seen (None Seen) Urine Trichomonas None seen (NONE SEEN) Urine Yeast None (NONE SEEN) Urinalysis Comment None Urine Culture Reflexed Indicated X-Ray Interpretation Xray Interpretation: IMPRESSION: Dislocation of the PIP joint of the right middle finger. Small osseous density in this region may represent a small fracture fragment however no definite donor site is seen. Recommend clinical correlation Dictated by: Fabian Joiner M.D. on 12/11/2016 at 17:42 X-Ray Ordered: Hand right Interpretation / Wet Read by: Interpret - Radiologist Xray Interpretation: IMPRESSION: Improved alignment of R middle finger Small avulsion fracture to the palmar aspect of PIP X-Ray Ordered: Hand right Interpretation / Wet Read by: Interpret - Radiologist CT Head Interpretation IMPRESSION: No acute intracranial abnormality. Mild bifrontal scalp swelling. Dictated by: Fabian Joiner M.D. on 12/11/2016 at 18:10 Study: Head CT no contrast Interpretation / Wet Read by: Interpret - Radiologist CT C-Spine Interpretation IMPRESSION: Age-indeterminate mild T3 and T4 compression fractures. Recommend clinical correlation No cervical spine fracture identified. Degenerative changes as above. Possible debris within the external auditory canal bilaterally although technically nonspecific and recommend correlation with visual inspection Dictated by: Fabian Joiner M.D. on 12/11/2016 at 18:13 Study type: CT no contrast Interpretation / Wet Read by: Interpret - Radiologist Procedures Reduction Finger Time: 21:59 Procedure Performed by: ED physician Consent / Setup / Site Prep: Consent from patient, Time-out performed, Oxygen administered, Pulse oximeter applied, quality analyst applied, Hand hygiene observed, Stand sterile technique, Standard surgical scrub, Sterile drapes applied Finger / Joint Involved: PIP, Right 3 Anesthetic Method / Agent: Lidocaine 1% Post-Procedure / Complications: NV intact post-procedure, Procedure successful , X-ray confirms reduction, No complications, Tolerated procedure well, Patient stable Splint Application - Fx Mgt Time: 22:04 Procedure Performed by: Facing Slitter Precise Anatomic Location: R 3rd middle finger PIP Type of Immobilization: Aluminum-foam Definitive Fracture Care: Splint Post-Procedure / Complications: Cap refill normal, Post splint vascular nl, Post splint neuro nl, Condition improved, Tolerated procedure well, Patient stable Splint Post-Application Eval Extremity Condition: Cap refill 2 sec, Distal sensation intact, Distal motor Intact, No compartment syndrome Re-Eval/Medical Decision Med Decision/Clinical Course In summary, 86-year-old male with a complex past medical history presenting to the ED for evaluation of increasing falls, altered mental status. Differential is broad and includes metabolic abnormality, systemic infectious process, CVA, intracranial mass/bleed, etc. This is been going on for several days and the patient has a grossly nonfocal neurologic examination with the exception of slurred speech; patient's niece states that this is baseline when he gets urinary tract infections. Vital signs here in the ED grossly within normal limits. Head CT negative for any acute intracranial abnormality. CT scan of the patient's C-spine demonstrate age indeterminate mild T3 and T4 compression fractures; I reevaluated this region again after seeing the CT results, and the patient has no tenderness to palpation whatsoever, nor is he complaining of any pain in this area - I suspect that these may be subacute or chronic. Laboratory studies reviewed, notable for a creatinine of 1.44, platelets of 100 , hemoglobin of 12.7, urinalysis with leukocyte esterase, packed white blood cells consistent with infection. In addition, a plain x-ray of the patient's right middle finger demonstrates dislocation of the PIP. This was reduced and splinted, as noted above. Tolerated well by the patient. Repeat x-ray demonstrates improved alignment and a likely avulsion fracture. He is neurovascularly intact both post reduction and after splinting. Patient started on ceftriaxone for urinary tract infection; I suspect that this is likely contributing to his altered mental status and increasing falls. Plan admission for further management and evaluation. Patient and patient's family agreeable to the plan as stated, no further questions. Time of Eval: 19:39 Patient Status: Condition improved Re-Evaluation/Progress Note: C-collar removed. Pateint is informed of the plan to reduce his finger. All questions are addressed at this time. Code status is discussed in the presence of his DPOA. Patient would like to be FULL CODE at this time. Time of Eval: 21:59 Patient Status: Condition improved Re-Evaluation/Progress Note: 3rd digit is reduced. Pt tolerates without complication. Consultation : Referral / Consult Name: Yajaira Faustin DO Consulted With: Hospitalist Call Returned at: 22:23 Sheet Metal Helper: Will see patient, Agrees with eval, Agrees with plan, Accepts admit Note: Discussed patient condition. Will accept patient for observation. Counseled Regarding: Diagnosis, Lab results, Need for admission Discharge & Departure Primary Impression: Altered mental status Altered mental status type: unspecified Qualified Code: R41.82 - Altered mental status, unspecified Additional Impressions: UTI (urinary tract infection) Urinary tract infection type: site unspecified Hematuria presence: without hematuria Qualified Code: N39.0 - Urinary tract infection, site not specified Fall from ground level Dislocation of right middle finger Encounter type: initial encounter Qualified Code: S63.252A - Unspecified dislocation of right middle finger, initial encounter Disposition: ADMITTED TO HOSPITAL Discharge Condition All VS Reviewed: Yes Condition: Improved Referrals: Alexandre Lees DO (PCP) Scribe Attestation Portions of this note were transcribed by Dina Riojas. Dr. Romero Matos personally performed the history, physical exam and medical decision-making; I reviewed and confirmed the accuracy of the information in the transcribed note. Signed by Eliana Abbott, 12/11/16. copies to: Alexandre Lees William B MD Dec 11, 2016 19:17 BEULAHDINA Dec 11, 2016 19:24 Alexandre Lees DO (PCP) Scribaubrey Attestation Portions of this note were transcribed by Dina Riojas. Dr. Romero Matos personally performed the history, physical exam and medical decision-making; I reviewed and confirmed the accuracy of the information in the transcribed note. Signed by Eliana Abbott, 12/11/16. copies to: Alexandre Lees William B MD Dec 11, 2016 19:17 DINA RIOJAS Dec 11, 2016 19:24
[2016-12-11] MEDS ORDERED: Vancomycin Dose per Pharmacist XX ONE (22:10)
[2016-12-11] MEDS ORDERED: Vancomycin Inj 1,750 MG in 0.9% Sodium Chloride 500 ML IV ONE (22:20)
[2016-12-11] MEDS ORDERED: cefTRIAXone 2,000 mg/D5W 50 mL IV Minibag Plus IV ONE ×2 (22:30)
[2016-12-11] MEDS ORDERED: LAMO200T2 PO (22:32)
[2016-12-11] MEDS ORDERED: OMEP20TA86 PO (22:32)
[2016-12-11] MEDS ORDERED: CLOT60CR TP (22:32)
[2016-12-11] MEDS ORDERED: CALC-1034 PO (22:46)
[2016-12-11] MEDS ORDERED: LAMO100T2 PO (22:49)
[2016-12-11] MEDS ORDERED: LORA10CA9 PO (22:50)
[2016-12-11] MEDS ORDERED: LACO50TA2 PO (22:56)
[2016-12-11] MEDS ORDERED: BISA10SU61 RC (22:56)
[2016-12-11] MEDS ORDERED: MAGN400O4 PO (22:56)
[2016-12-11] MEDS ORDERED: NA P133E23 RC (22:56)
[2016-12-11] MEDS ORDERED: LOPE2TAB32 PO (22:56)
[2016-12-11] MEDS ORDERED: POLY17PO6 PO (22:56)
[2016-12-11] MEDS ORDERED: UBID30CA PO (22:56)
[2016-12-11] MEDS ORDERED: PSYL480P PO (22:56)
--- NOTE | 2016-12-11 22:57 | PCM.HPMED ---
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 At the time of my examination patient's family was not present. ED physician talked extensively to the patient's family as the patient at baseline has decreased cognitive ability and currently is altered per family members. Physician states that the patient's niece who is his DPOA states that the patient is much more confused and disoriented than his typical baseline. His live at [facility] as he is unable to take care of himself. He walks with a walker it is unclear whether this is secondary to his Parkinson's, deconditioning, or other etiology. The patient at the time of my exam denied any fever, chills, night sweats, lightheadedness, headache, nausea, vomiting, dysuria, hematuria, diarrhea, chest pain, or shortness of breath. On presentation to the ED patient's vitals were 36.8, pulse 66, respiratory rate 18 satting 94% on room air, and a blood pressure 112/65. Initial labs were remarkable for platelet count of 100, BUN 31, creatinine 1.44, troponin of 0.010, and urinalysis with packed WBC and large leukocyte esterase. CT head and neck along with the plain film of his right hand were completed. CT neck showed age-indeterminate mild T3 and T4 compression fractures. Plain film of the hand revealed dislocation of PIP joint of the right middle finger. In the ED finger was reset and placed in a splint. Patient was also given 1 dose of ceftriaxone. Review of Systems: Review of systems unable to be obtained due to the patient's current mental status. Allergies Coded Allergies: levofloxacin (Verified Allergy, Intermediate, vomiting, rash, 04/12/16) amiodarone (Verified Allergy, Unknown, confusion, 04/12/16) Home Medications Aidan GillespieKristie [phone] 1930 11/05/2016 02:30 PM Page: 03/2001/30/2016 aspirin 81 mg tablet,delayed release take 2 tablet by oral route every day Benefiber Sugar Free (guar gum) oral powder 1 tablespoon every day with juice 08/08/2015 Calcium with Vitamin D 600 mg (1,500 mg)-400 unit tablet take 1 Tablet by Oral route 2 times every day 11/05/2016 carbidopa 25 mg-levodopa 100 mg disintegrating tablet take 2 tablet by oral route 3 times every day and place on top of the tongue where it will dissolve, then swallow CLARITIN 08/08/2015 CoQ-10 100 mg capsule 1 capsule by mouth daily 08/08/2015 docusate sodium 100 mg capsule take 1 capsule by oral route every day at bedtime as needed 08/08/2015 ferrous sulfate 325 mg (65 mg iron) tablet take 1 Tablet by Oral route every day 08/08/2015 furosemide 20 mg tablet TAKE ONE HALF OF A TABLET BY MOUTH DAILY 11/05/2016 lamotrigine 100 mg tablet take 2 tablet by oral route 2 times every day 11/05/2016 levetiracetam 500 mg tablet take 1 tablet by oral route 2 times every day 07/16/2014 LISINOPRIL 5MG TAB TABS TAKE 1 TABLET BY ORAL ROUTE EVERY DAY 08/08/2015 magnesium oxide 400 mg capsule Take one tablet daily 08/08/2015 metoprolol tartrate 25 mg tablet take 0.5 Tablet (12.5 MG) by oral route 2 times every day for heart 08/08/2015 multivitamin with minerals tablet take 1 tablet by oral route every day with food 01/30/2016 omeprazole 20 mg capsule,delayed release take 1 capsule by oral route every day before a meal 09/12/2013 polyethylene glycol 3350 17 gram/dose oral powder take (17G) by oral route every day mixed with 8 oz. water, juice, soda, coffee or tea 01/30/2016 psyllium husk 2.6 gram/4.1 gram oral powder Take 1 tablespoon (3.4 GM ) in juice daily 08/08/2015 Vitamin D3 2,000 unit tablet Take 1 tablet by mouth daily PMH Atypical parkinsonism Hypertension Aortic valve replacement secondary to rheumatic fever Developmental delay CHF Atrial fibrillation (paroxysmal identified May 2015) - on ASA, not warfarin ( multiple falls, high risk for warfarin) Chronic thrombocytopenia GERD Sleep apnea BPH Coronary artery disease Seizures Surgical History Aortic valve replacement: bioprosthetic cancer removal Cholecystectomy May 2015 Family History His father of a cerebrovascular accident Patient mother of congestive heart flair Patient's brother had aortic valve replacement and then of an aortic aneurysm Patient is a sister who is 87 years old and lives independently Social History Occupation: retired [employer] Hx Alcohol Use: Yes Hx Substance Use: No Hx Tobacco Use: Yes (patient would have 1-4 cigars a day) Smoking Status: Current Every Day Smoker Living Arrangement: Other ([facility]) Exam Vital Signs Vital Sign - Last Date Time Temp Pulse Resp B/P Pulse Ox O2 Delivery O2 Flow Rate FiO2 12/11/16 16:50 36.8 66 18 112/65 94 Exam General: Elderly man in no acute distress. HEENT: Normocephalic, atraumatic. External ears without defect. Pupils equal, round, and reactive to light and accommodation. Anicteric sclerae, moist conjunctivae, and no lid lag. Neck: Supple with full range of motion. No jugular venous distension. Cardiovascular: Regular rate and rhythm with no murmurs, rubs, or gallops appreciated Pulmonary: Clear to auscultation bilaterally with no crackles, wheezes, or rhonchi. Normal respiratory effort with no use of accessory muscles. Abdomen: Bowel tones present. Soft, nontender, nondistended. No hepatosplenomegaly or masses appreciated. Extremities: Right hand with splint on third digit and some surrounding edema and mild tenderness to palpation. Lower extremities well-perfused without edema. Skin: Numerous Seborrheic keratosis on face and extremities. Neurological: Cranial nerves grossly intact. Normal muscle strength, tone, and bulk. And relates with walker. Sensory function within normal limits. Psychiatric: Normal mood and affect. Alert and oriented to person and place but not time. Lab and Diagnostics Result Diagram: 12/11/16 1710 12/11/16 1710 X-Rays, CTs and MRIs CT BRAIN WITHOUT CONTRAST ([id number]) IMPRESSION: No acute intracranial abnormality. Mild bifrontal scalp swelling. Dictated by: Fabian Joiner M.D. on 12/11/2016 at 18:10 Approved by: Fabian Joiner M.D. on 12/11/2016 at 18:13 CT CERVICAL SPINE WITHOUT CONTRAST ([id number]) IMPRESSION: Age-indeterminate mild T3 and T4 compression fractures. Recommend clinical correlation No cervical spine fracture identified. Degenerative changes as above. Possible debris within the external auditory canal bilaterally although technically nonspecific and recommend correlation with visual inspection Dictated by: Fabian Joiner M.D. on 12/11/2016 at 18:13 Approved by: Fabian Joiner M.D. on 12/11/2016 at 18:17 X-RAY FINGERS, TWO VIEWS RIGHT IMPRESSION: Dislocation of the PIP joint of the right middle finger. Small osseous density in this region may represent a small fracture fragment however no definite donor site is seen. Recommend clinical correlation Dictated by: Fabian Joiner M.D. 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 Complicated urinary tract infection, present on admission, active. - Urinalysis with packed WBCs and positive for leukocyte esterase. - 1 dose of ceftriaxone given in the ED. Switched to cefepime as this is a complicated UTI and patient is allergic to levofloxacin. - Urine culture pending. Narrow antibiotic therapy following results. Altered mental status, present on admission, active. - No focal neurologic deficits. Etiology likely secondary to UTI. - Head CT with no acute intracranial findings. - Keppra and Lamictal levels pending. - May consider EEG although no signs of seizure activity. - Treatment as above. Ground-level fall, present on admission, active. - Etiology likely multifactorial including UTI, deconditioning, and chronic conditions including Parkinson's. - CT neck shows a age indeterminate T3 and T4 compression fracture. Patient has no pain to palpation. Likely chronic or subacute as patient has had numerous falls in the last few months by review of outpatient records. - CT head as above. - Physical therapy evaluation ordered. Acute kidney injury, present on admission, active. - On admission creatinine 1.44. Baseline creatinine is 0.9. - Normal saline at 100 mL/h for 1 L. - Avoid nephrotoxic medications. - Repeat BMP in the morning. Dislocated right third digit PIP, present on admission, active. - Re-articulated in the ED and placed in a splint. Atypical Parkinson's, present on admission, active. - Patient follows with Dr. ferguson. - Continue home medication: Carbidopa levodopa 25-100 milligrams 2 tabs 3 times a day Localized related seizure disorder, present on admission, active. - Continue home medication: Lamotrigine 200 mg twice a day and Keppra 500 mg twice a day. - Keppra and Lamictal level pending. - Seizure precautions in place. Chronic stable conditions History of Rheumatic fever with Rheumatic heart disease -S/P bioprosthetic AVR 3 years ago at [facility] in [place] -Check echocardiogram in a.m. Paroxysmal Atrial fibrillation (paroxysmal identified May 2015) - On aspirin 81 mg daily but no other anticoagulation as risks outweigh the benefit. - Continue home medication: Metoprolol 12.5 mg twice a day. Chronic thrombocytopenia - On admit platelets 100. - Continue to monitor. GERD - Pantoprazole 20 mg daily. Left ventricular hypertrophy with chronic diastolic congestive heart failure or CHF - Continue home medication: Metoprolol, lisinopril, furosemide. Hypertension - Continue home medication: Metoprolol, lisinopril, furosemide. Developmental delay - Resides at [facility]. - Patient has 3 nieces that share DPOA. CODE STATUS was discussed with nieces by ED physician. Patient is full code. PRN Medications - Acetaminophen as needed for mild pain/fever/headache - Bowel regimen as needed - Antiemetic as needed Patient is admitted under observation status with expected length of stay less than 2 midnights due to severity of presenting symptoms, risk of adverse event, and complexity of treatment plan. Pain Evaluation: Adequate Pain Control GI Prophylaxis: Proton Pump Inhibitor VTE Prophylaxis: Sub-Q Heparin (Unfractionated), SCDs Resuscitation Status: CPR: Attempt Resuscitation Attending Statement The patient was seen and examined together with house staff on 12/11/2016 and I agree with the history, exam and plan as outlined in the note above. JESSY HERNDON DO Dec 11, 2016 22:57 Yajaira Faustin DO Dec 12, 2016 04:55
[2016-12-12] VITALS (8 sets, daily range): BP systolic 105–143; BP diastolic 62–73; PULSE 61–66; RESP 18; O2SAT 93–97
[2016-12-12] MEDS ORDERED: Alum-Mag Hydrox-Simeth 30 mL Suspension PO PRN
[2016-12-12] MEDS ORDERED: Polyethylene Glycol (PEG) 17 Gm Powder PO PRN
[2016-12-12] MEDS ORDERED: Ondansetron 2 mg/mL 2 mL Inj IVPUSH PRN
[2016-12-12] MEDS: lamoTRIgine 100 mg Tablet PO SCH ×3 (00:46→20:34)
[2016-12-12] MEDS: levETIRAcetam 500 mg Tablet PO SCH ×3 (00:46→20:33)
[2016-12-12] MEDS ORDERED: 0.9% Sodium Chloride 1,000 ML IV SCH (00:50)
--- NOTE | 2016-12-12 00:54 | NUR ---
Admit Patient admitted to room 3028 at 0010 from ED. Seems to be alert and oriented, became irritable and impatient with admit questions- most done by recalling previous values. Med list entered by pharmacist in ED. Multiple skin issues- see flowsheet. Telemetry connected. Oriented to room, call light. [place] bed alarm in place. Seizure pads on bed.
[2016-12-12] MEDS: Heparin 5,000 Unit/mL Inj SUBQ SCH ×4 (01:43→23:37)
[2016-12-12 06:25] LABS: BASOPHILS % (AUTO) 0.3 % (0-3); EOSINOPHILS % (AUTO) 1.9 % (0-5); MONOCYTES % (AUTO) 9.7 % (4-12); Mean Corpuscular Hemoglobin 31.1 pg (27.0-35.0); Mean Corpuscular Volume 91.6 fL (81-100); NEUTROPHILS % (AUTO) 59.1 % (40-74); Platelet Count 86 bil/L (150-400)
[2016-12-12] MEDS ORDERED: Pantoprazole 20 mg ER24 Tablet PO SCH (07:30)
[2016-12-12] MEDS ORDERED: Cefepime Inj 2,000 MG in Dextrose 5% Minibag Plus 100 ML IV SCH (08:30)
[2016-12-12] MEDS ORDERED: Polyethylene Glycol (PEG) 17 Gm Powder PO SCH (08:30)
--- NOTE | 2016-12-12 09:51 | DRSVH ---
PROCEDURE: X-RAY FINGERS, TWO VIEWS RIGHT INDICATIONS: POST REDUCTION TECHNIQUE: AP hand, 2 views of the third finger acquired. COMPARISON: [facility], CR, XR FINGER(S) RT 2VW, 12/11/2016, 17:24. FINDINGS: Bones: No fractures or dislocations. No suspicious bony lesions. Soft tissues: No suspicious soft tissue calcifications. IMPRESSION: Successful reduction of third digit proximal interphalangeal joint dislocation, with a sm all avulsion fragment seen displaced from the palmar articular margin of the base of the third middle phalanx, seen on the lateral view. This likely indicates volar plate injury in this clinical circum stance. Dictated by: Yoan Bragg M.D. on 12/12/2016 at 9:48 Approved by: Yoan Bragg M.D. on 12/12/2016 at 9:49
--- NOTE | 2016-12-12 11:33 | PCM.PNMED ---
Subjective Date of Service Dec 12, 2016 Subjective Patient is comfortable. He denies any pain, shortness of breath. He denies any abdominal pain. Sleep well. No overnight events noted. Exam Vital Signs Vital Sign - Last Date Time Temp Pulse Resp B/P Pulse Ox O2 Delivery O2 Flow Rate FiO2 12/12/16 09:12 36.8 64 18 108/62 93 Room Air Intake and Output 12/11/16 12/11/16 12/12/16 Cumulative From/Thru 15:00 23:00 07:00 12/11/16 16:50 - 12/12/16 07:00 Intake Total 516 ml 516 ml Output Total 200 ml 200 ml Balance 316 ml 316 ml Intake Oral 100 ml 100 ml IV Total 416 ml 416 ml Output Urine Total 200 ml 200 ml # Bowel Movements 0 0 Exam Alert and oriented. No distress. Speech. Anicteric sclera. Neck supple Lungs are clear with normal upper Heart is regular without murmur. Abdomen is distended and nontender Extremities are free of edema IVs and Medications Medications Reviewed: Medications were reviewed in detail Lab and Diagnostics Result Diagram: 12/12/16 0607 12/12/16 0607 X-Rays, CTs and MRIs CT BRAIN WITHOUT CONTRAST ([id number]) IMPRESSION: No acute intracranial abnormality. Mild bifrontal scalp swelling. Dictated by: Fabian Joiner M.D. on 12/11/2016 at 18:10 Approved by: Fabian Joiner M.D. on 12/11/2016 at 18:13 CT CERVICAL SPINE WITHOUT CONTRAST ([id number]) IMPRESSION: Age-indeterminate mild T3 and T4 compression fractures. Recommend clinical correlation No cervical spine fracture identified. Degenerative changes as above. Possible debris within the external auditory canal bilaterally although technically nonspecific and recommend correlation with visual inspection Dictated by: Fabian Joiner M.D. on 12/11/2016 at 18:13 Approved by: Fabian Joiner M.D. on 12/11/2016 at 18:17 X-RAY FINGERS, TWO VIEWS RIGHT IMPRESSION: Dislocation of the PIP joint of the right middle finger. Small osseous density in this region may represent a small fracture fragment however no definite donor site is seen. Recommend clinical correlation Dictated by: Fabian Joiner M.D. 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 ED due to multiple falls the last of which was unwitnessed and occurred just prior to arrival. Complicated urinary tract infection, present on admission, active and improving. - Urinalysis with packed WBCs and positive for leukocyte esterase. - 1 dose of ceftriaxone given in the ED. Switched to cefepime as this is a complicated UTI and patient is allergic to levofloxacin. - Urine culture still pending. We'll stop cefepime and continue ceftriaxone. Await cultures. Altered mental status, present on admission, resolved. - No focal neurologic deficits. Etiology likely secondary to UTI. - Head CT with no acute intracranial findings. - Keppra and Lamictal levels pending. -Family is at the bedside and states he is at baseline today. We'll continue to follow clinically. Ground-level fall, present on admission, active. - Etiology likely multifactorial including UTI, deconditioning, and chronic conditions including Parkinson's. - CT neck shows a age indeterminate T3 and T4 compression fracture. Patient has no pain to palpation. Likely chronic or subacute as patient has had numerous falls in the last few months by review of outpatient records. - CT head as above. Negative. The patient has had about 4 falls over 3 days which may be related to urinary tract infection. - Physical therapy evaluation ordered. Acute kidney injury, present on admission, active and improving. - On admission creatinine 1.44. Baseline creatinine is 0.9. - Normal saline at 100 mL/h for 1 L. - Avoid nephrotoxic medications. -Follow clinically Dislocated right third digit PIP, present on admission, active. - Re-articulated in the ED and placed in a splint. No change to current treatment. Atypical Parkinson's, present on admission, active. - Patient follows with Dr. ferguson. - Continue home medication: Carbidopa levodopa 25-100 milligrams 2 tabs 3 times a day, no change. Localized related seizure disorder, present on admission, active. - Continue home medication: Lamotrigine 200 mg twice a day and Keppra 500 mg twice a day. - Keppra and Lamictal level pending. - Seizure precautions in place. No change to medications we'll continue to observe. History of Rheumatic fever with Rheumatic heart disease -S/P bioprosthetic AVR 3 years ago at [facility] in [place] -Check echocardiogram in a.m. Paroxysmal Atrial fibrillation (paroxysmal identified May 2015) - On aspirin 81 mg daily but no other anticoagulation as risks outweigh the benefit. - Continue home medication: Metoprolol 12.5 mg twice a day. Chronic thrombocytopenia - On admit platelets 100. - Continue to monitor. GERD - Pantoprazole 20 mg daily. Left ventricular hypertrophy with chronic diastolic congestive heart failure or CHF - Continue home medication: Metoprolol, lisinopril, furosemide. Hypertension - Continue home medication: Metoprolol, lisinopril, furosemide. Developmental delay - Resides at [facility]. - Patient has 3 nieces that share DPOA. CODE STATUS was discussed with nieces by ED physician. Patient is full code. PRN Medications - Acetaminophen as needed for mild pain/fever/headache - Bowel regimen as needed - Antiemetic as needed Patient was admitted to observation status, he'll be changed to inpatient status today. He'll require a second night for treatment of urinary tract infection with his frequency of falls very likely be related to his urinary tract infection. In addition the patient also is a possibility of seizure breakthrough activity. These issues cannot be resolved and followed adequately with discharge today. GI Prophylaxis: Proton Pump Inhibitor VTE Prophylaxis: Sub-Q Heparin (Unfractionated), SCDs Resuscitation Status: CPR: Attempt Resuscitation Ruben Sage MD Dec 12, 2016 11:33
--- NOTE | 2016-12-12 11:45 | NUR ---
Evaluation completed. Please go to "Notes" then click on "Assessments and Notes" (bottom left corner of screen). Then select appropriate discipline tab on top of screen.
--- NOTE | 2016-12-12 15:41 | NUR ---
Activity: Patient assisted to BSC 2PA, does well standing, unsteady with turning. 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 Tolerated well.
[2016-12-12] MEDS ORDERED: .Epic Conversion Completed XX PRN (17:35)
== END 2016-12-13 01:44 | disposition admitted as inpatient to this hospital (09) | DRG 951 ==
LOC: SED 16:43 → EDBD 16:43 → MPC 20:42 → INTOOBSV 20:42 → OBSVTOIN 20:42
PROVIDERS: ADMIT Internal Medicine; ATTEND Hospitalist
DX: R69 Illness, unspecified (principal)